=== PATIENT | female | born 1985 | race Caucasian/White ===

== ENCOUNTER 2022-04-17 13:29 | Inpatient (IN) | payer OTHER, SELFPAY ==
[2022-04-17] VITALS (20 sets, daily range): BP systolic 103–143; BP diastolic 78–101; PULSE 93–124; RESP 16–28; TEMP 36.6–37.1; O2SAT 88–100
--- NOTE | ~2022-04-17 | CT_ITS ---
EXAMINATION: CT BRAIN W/O DATE: 04/17/2022 14:02 INDICATION: Strokelike symptoms. TECHNIQUE: Computed tomography (CT) of the head was performed without intravenous contrast. The dose- length product was 605.33 mGy-cm. Automated exposure control and iterative reconstruction technique w ere employed. COMPARISON: No prior studies for comparison. FINDINGS: Normal brain parenchymal volume for age. Normal sheldon-white differentiation. No acute intrac ranial hemorrhage, infarction, mass or mass effect. No ventriculomegaly or midline shift. Midline sagittal images demonstrate a normal corpus callosum, c raniovertebral junction and sella turcica. Basilar cisterns are patent. Paranasal sinuses and mastoids are pneumatized. No depressed skull fractures. IMPRESSION: 1. No acute intracranial abnormality. Reviewed, dictated and finalized at location A.
--- NOTE | ~2022-04-17 | XR_ITS ---
EXAMINATION: XR chest 1V 04/17/2022 13:55 INDICATION: Symptoms PROCEDURE: AP view of the chest COMPARISON: No prior studies for comparison. FINDINGS: The lungs are clear. The cardiomediastinal silhouette is within normal limits. There are no pleural effusions. There is no pneumothorax suspected. IMPRESSION: 1: NO ACUTE CARDIOPULMONARY DISEASE. Reviewed, dictated and finalized at location A.
--- NOTE | ~2022-04-17 | XR_ITS ---
EXAMINATION: XR chest 1V portable DATE: 04/20/2022 05:54 INDICATION: Intubation. TECHNIQUE: A single frontal view of the chest was obtained. COMPARISON: Chest single view 04/19/2022, chest CT 04/18/2022 FINDINGS: There is no pneumonia, pleural effusion, or pneumothorax. The heart size is normal. The end otracheal tube tip is 5.0 cm above the willian. The nasogastric tube tip is in the stomach with proxim al side port at the gastroesophageal junction. A left upper extremity peripherally inserted central v enous catheter (PICC) is seen with tip at the superior cavoatrial junction. IMPRESSION: 1. No acute cardiopulmonary disease. 2. Nasogastric tube tip in the stomach with proximal side port at the gastroesophageal junction. Adva ncement 3 cm is recommended. Reviewed, dictated and finalized at location A. IMPRESSION: 1. No acute cardiopulmonary disease. 2. Nasogastric tube tip in the stomach with proximal side port at the gastroeso phageal junction. Advancement 3 cm is recommended.
--- NOTE | ~2022-04-17 | XR_ITS ---
XR chest 1V portable DATE: 04/24/2022 06:29 INDICATION: Respiratory failure TECHNIQUE: Portable upright AP chest on 04/2022 at 0541 hours COMPARISON: 04/22/2022 portable AP chest at 0536 hours FINDINGS: ET tube tip approximately 5.6 cm above willian; ideal range is 2 5 cm. NG tube in stomach. Left upper extremity PIC catheter tip is situated near the superior cavoatrial junction. Normal heart size. No pulmonary infiltrate or consolidation, pleural effusion or pulmonary vascular c ongestion or pneumothorax. Diffuse osteopenia. IMPRESSION: No active cardiac pulmonary disease ET tube 5.6 cm above willian NG tube in stomach Left upper extremity PIC catheter at superior cavoatrial junction Reviewed, dictated and finalized at location A.
--- NOTE | ~2022-04-17 | CT_ITS ---
EXAMINATION: CT brain wo con DATE: 04/21/2022 12:55 INDICATION: Cerebrovascular accident. TECHNIQUE: Computed tomography (CT) of the head was performed without intravenous contrast. The mA wa s adjusted according to patient size. Iterative reconstruction technique was employed. The dose-lengt h product was 605.33 mGy-cm. COMPARISON: Head CT 04/18/2022, 04/17/2022, brain MRI 04/18/2022. FINDINGS: There are acute infarcts involving the medial frontal lobes, frontoparietal regions, medial left parietal lobe, and medial aspects of the thalami. There is no intracranial hemorrhage or abnorm al mass lesion. The ventricles are normal in size. The orbits are normal. There is mild mucosal thick ening in the paranasal sinuses. The mastoid air cells are normal. IMPRESSION: 1. Acute infarcts involving the frontal and parietal lobes and thalami. The distribution of findings and temporal progression suggest anoxic brain injury. Reviewed, dictated and finalized at location A. IMPRESSION: 1. Acute infarcts involving the frontal and parietal lobes and thalami. The dis tribution of findings and temporal progression suggest anoxic brain injury.
--- NOTE | ~2022-04-17 | CT_ITS ---
EXAMINATION: CT chest abdomen pelvis wo con DATE: 04/18/2022 23:52 INDICATION: Stroke. Vomiting. TECHNIQUE: Computed tomography (CT) of the chest, abdomen, and pelvis was performed without intraveno us contrast. Automated exposure control and iterative reconstruction technique were employed. The dos e-length product was 381.01 mGy-cm. COMPARISON: Chest CT 04/18/2022, CT abdomen and pelvis 04/17/2022 FINDINGS: CHEST CT: There is mild atelectasis bilaterally with a posterior predominance, left worse than right. There is material in the trachea and left mainstem bronchus. No pleural effusion. The heart size is normal. No pericardial effusion. The nasogastric tube tip is in the distal stomach. The endotracheal tube tip i s in expected position above the willian. There is a 1.8 cm peripherally calcified nodule in left thyr oid lobe. There is mild thoracic spondylosis. ABDOMEN/PELVIS CT: The liver demonstrates focal steatosis adjacent to the falciform ligament. The gallbladder is normal in size and contains contrast in a gallstone. The spleen, pancreas, adrenal glands and kidneys are no rmal. There is a Markham catheter in expected position. There are no dilated loops of bowel. The append ix is normal. There are no pathologically enlarged lymph nodes. There is no free intraperitoneal flui d. IMPRESSION: 1. Cholelithiasis. No evidence of acute cholecystitis. 2. Left thyroid nodule. Consider thyroid ultrasound for risk stratification. 3. Material in the trachea and left mainstem bronchus that may be mucous or aspiration. Reviewed, dictated and finalized at location A. IMPRESSION: 1. Cholelithiasis. No evidence of acute cholecystitis. 2. Left thyroid nodule. Consider thyroid ultrasound for risk stratification. 3. Material in the trachea and left mainstem bronchus that may be mucous or asp iration.
--- NOTE | ~2022-04-17 | CT_ITS ---
EXAMINATION: CT brain wo con DATE: 04/18/2022 23:52 INDICATION: Stroke. TECHNIQUE: Computed tomography (CT) of the head was performed without intravenous contrast. The mA wa s adjusted according to patient size. Iterative reconstruction technique was employed. The dose-lengt h product was 605.33 mGy-cm. COMPARISON: Head CT 04/18/2022, brain MRI 04/18/2022 FINDINGS: There is hypoattenuation in the bilateral frontoparietal regions, left worse than right, co nsistent with acute infarcts. There is no intracranial hemorrhage or abnormal mass lesion. The ventri cles are normal in size. There is mild mucosal thickening in the paranasal sinuses. The mastoid air c ells are normal. IMPRESSION: 1. Acute infarcts in the frontoparietal regions, left worse than right. Reviewed, dictated and finalized at location A.
--- NOTE | ~2022-04-17 | XR_ITS ---
XR chest PICC line DATE: 04/19/2022 12:24 INDICATION: PICC line placement TECHNIQUE: Portable AP chest on 04/19/2022 at 1250 hours COMPARISON: 04/19/2022 portable AP chest at 0844 hours FINDINGS: There is interval placement of a left upper extremity PIC catheter, the tip situated near t he superior cavoatrial junction. ET tube in satisfactory position 3.2 cm above willian. NG tube in stomach. Normal heart size. No hilar or mediastinal enlargement. No pulmonary infiltrate or consolidation, ple ural effusion or pulmonary vascular congestion or pneumothorax. IMPRESSION: Left upper extremity PIC catheter tip at superior cavoatrial junction Reviewed, dictated and finalized at Location A. Reviewed, dictated and finalized at location A. IMPRESSION: Left upper extremity PIC catheter tip at superior cavoatrial juncti on
--- NOTE | ~2022-04-17 | XR_ITS ---
EXAMINATION: XR chest 1V portable DATE: 04/22/2022 06:17 INDICATION: Intubation. TECHNIQUE: A single frontal view of the chest was obtained. COMPARISON: Chest single view 04/21/2022 FINDINGS: There is no pneumonia, pleural effusion, or pneumothorax. The heart size is normal. The end otracheal tube tip is 6.5 cm above the willian. A left upper extremity peripherally inserted central v enous catheter (PICC) is seen with tip at the superior cavoatrial junction. The nasogastric tube tip is beyond the inferior margin of the radiograph, but at least to the stomach. IMPRESSION: 1. No acute cardiopulmonary disease. Reviewed, dictated and finalized at location A.
--- NOTE | ~2022-04-17 | CT_ITS ---
EXAMINATION: CT soft tissue neck chest wo DATE: 04/18/2022 12:45 INDICATION: Speech disturbance. Right hemiparesis. Confusion. Vomiting. TECHNIQUE: Computed tomography (CT) of the neck was performed without intravenous contrast. Automated exposure control and iterative reconstruction technique were employed. The dose-length product was 5 37.44 mGy-cm. COMPARISON: CT abdomen and pelvis 04/17/2022 FINDINGS: CT NECK: Motion artifact is noted. There are no pathologically enlarged lymph nodes. The paranasal si nuses are clear. The mastoid air cells are normal. There is a foreign body in the mouth that may be a dental appliance. There is mild cervical spondylosis. There is anterior fusion at C5-C6. CT CHEST: There is mild dependent atelectasis bilaterally. No pleural effusion. There are coarse calc ifications in left thyroid lobe. The heart size is normal. No pericardial effusion. There is mild tho racic spondylosis. IMPRESSION: 1. No etiology for the patient's symptoms. Reviewed, dictated and finalized at location E.
--- NOTE | ~2022-04-17 | CT_ITS ---
EXAMINATION: CTA brain carotid DATE: 04/18/2022 15:55 INDICATION: cva TECHNIQUE: Computed tomographic angiography (CTA) of the head and neck was performed withwith 100 mL Omnipaque-350 intravenous contrast. Automated exposure control and iterative reconstruction technique were employed. The dose-length product was 1036.24 mGy-cm. Maximum intensity projection and volume r endered 3D-reconstructions were created by the technologist on a separate workstation. COMPARISON: MRI brain, same date. CT brain 04/17/2022. FINDINGS: Examination is limited throughout by significant motion artifact, worst in the neck images. CTA HEAD: No large vessel occlusion, aneurysm, high flow vascular malformation, nidus or extravasation. CTA NECK: Aortic arch and proximal great vessels: No significant plaque. Right common carotid, carotid bifurcation, and internal carotid artery: No significant plaque.There i s 0% stenosis of the proximal right internal carotid artery relative to normal distal artery lumen di ameter (NASCET criteria). Left common carotid, carotid bifurcation, and internal carotid artery: No significant plaque.There is 0% stenosis of the proximal left internal carotid artery relative to normal distal artery lumen diam eter (NASCET criteria). Vertebral arteries: No significant plaque or stenosis. Other findings: Question prior right thyroid lobectomy. IMPRESSION: Examination is severely limited by motion artifact. Within that constraint, no large vessel occlusion is detected. No definite severe carotid or vertebral artery stenosis. Reviewed, dictated and finalized at location K. IMPRESSION: Examination is severely limited by motion artifact. Within that constraint, no large vessel occlusion is detected. No definite severe carotid or vertebral art darren stenosis.
--- NOTE | ~2022-04-17 | XR_ITS ---
XR chest 1V portable DATE: 04/25/2022 06:50 INDICATION: Respiratory failure TECHNIQUE: Portable AP chest on 04/25/2022 at 0527 hours COMPARISON: 04/24/2022 portable AP chest at 0541 hours FINDINGS: ET tube 6 cm above willian; ideal range is 2 to 5 cm. NG tube in satisfactory position in stomach. Left upper extremity PIC catheter tip overlies the right atrium. Moderate bilateral hyperinflation. No pulmonary consolidation, pleural effusion, pulmonary vascular c ongestion or pneumothorax. IMPRESSION: Mild hyperinflation; no active cardiopulmonary disease ET tube 6 cm above willian; ideal range is 2 5 cm Reviewed, dictated and finalized at location A. MED SURG
--- NOTE | ~2022-04-17 | XR_ITS ---
EXAMINATION: XR chest 1V portable DATE: 04/19/2022 08:59 INDICATION: Intubation. TECHNIQUE: A single frontal view of the chest was obtained. COMPARISON: Chest single view 04/18/2022 FINDINGS: There is no pneumonia, pleural effusion, or pneumothorax. The heart size is normal. The end otracheal tube tip is 3.9 cm above the willian. The nasogastric tube tip is beyond the inferior margin of the radiograph, but at least to the stomach. IMPRESSION: 1. No acute cardiopulmonary disease. Reviewed, dictated and finalized at location A.
--- NOTE | ~2022-04-17 | XR_ITS ---
EXAMINATION: XR chest 1V portable DATE: 04/21/2022 05:45 INDICATION: Intubation. TECHNIQUE: A single frontal view of the chest was obtained. COMPARISON: Chest single view 04/20/2022, chest CT 04/18/2022 FINDINGS: There is no pneumonia, pleural effusion, or pneumothorax. The heart size is normal. The end otracheal tube tip is 5.8 cm above the willian. A left upper extremity peripherally inserted central v enous catheter (PICC) is seen with tip at the superior cavoatrial junction. The nasogastric tube tip is beyond the inferior margin of the radiograph, but at least to the stomach. IMPRESSION: 1. No acute cardiopulmonary disease. Reviewed, dictated and finalized at location A.
--- NOTE | ~2022-04-17 | CT_ITS ---
EXAMINATION: CT abdomen pelvis w con DATE: 04/17/2022 16:07 INDICATION: confusion, vomiting, lactic acidosis TECHNIQUE: Computed tomography (CT) of the abdomen and pelvis was performed with 100 mL Omnipaque-350 intravenous contrast. Automated exposure control and iterative reconstruction technique were employe d. The dose-length product was 318.59 mGy-cm. COMPARISON: None. FINDINGS: Lower thorax: Unremarkable Liver: Fatty infiltration. Biliary/Gallbladder: Gallbladder is collapsed. No bile duct dilation. Pancreas: No mass or duct dilation. Spleen: Normal. Adrenals:No mass. Kidneys: Mild patchy enhancement most evident in the bilateral upper poles and right midpole. Mild bi lateral ureterectasis with urothelial enhancement. No suspicious mass. No obstructing stone. GI tract: Mild distal esophageal and gastric wall edema as can be seen with esophagitis/gastritis. No small or large bowel dilation. Normal appendix. Diverticulosis without diverticulitis. Mesentery/Peritoneum: No ascites, mass, or free air. Retroperitoneum: No mass. Calcified and noncalcified abdominal aortic plaque. Pelvis: Distended urinary bladder without wall thickening, remaining pelvic organs are within normal limits. Soft Tissues: Soft tissues and body wall unremarkable. Bones: No acute osseous finding. IMPRESSION: Renal findings may reflect bilateral pyelonephritis in the appropriate clinical context. Reviewed, dictated and finalized at location K.
--- NOTE | ~2022-04-17 | XR_ITS ---
EXAMINATION: XR chest ET placement DATE: 04/18/2022 22:21 INDICATION: Intubation. TECHNIQUE: A single frontal view of the chest was obtained. COMPARISON: Chest single view 04/17/2022 FINDINGS: There is volume loss of left hemithorax. There are airspace opacities in all left lung zone s. No pleural effusion or pneumothorax. The heart size is normal. The endotracheal tube tip is 2.1 cm above the willian. The nasogastric tube tip is beyond the inferior margin of the radiograph, but at l east to the stomach. IMPRESSION: 1. New volume loss of left hemithorax with new airspace opacities in left lung, likely atelectasis. Reviewed, dictated and finalized at location A.
--- NOTE | ~2022-04-17 | MR_ITS ---
EXAMINATION: MR brain IAC wo/w con DATE: 04/18/2022 12:38 INDICATION: Cerebrovascular accident. TECHNIQUE: Magnetic resonance imaging (MRI) of the brain, brainstem, and internal auditory canals was performed without and with 12 mL MultiHance intravenous contrast. COMPARISON: Head CT 04/17/2022 FINDINGS: There are acute cortical infarcts in the bilateral frontoparietal regions, left worse than right. There is increased cortical T2-weighted signal intensity in the medial posterior frontal lobes, left worse than right. There is n o intracranial hemorrhage or abnormal mass lesion. The ventricles are normal in size. The orbits are normal. The mastoid air cells are normal. The internal auditory canals and inner and middle ears are normal. The mastoid air cells are normal. IMPRESSION: 1. Acute cortical infarcts in the frontoparietal regions, left worse than right. 2. Cortical infarcts involving the medial posterior frontal lobes, left worse than right, likely floor attendant viviana. Reviewed, dictated and finalized at location E. IMPRESSION: 1. Acute cortical infarcts in the frontoparietal regions, left worse than right . 2. Cortical infarcts involving the medial posterior frontal lobes, left worse t emmanuel right, likely chronic.
--- NOTE | 2022-04-17 13:32 | ECG_ITS ---
Measurements Intervals [place] Rate: 119 P: 183 MT: 142 QRS: 85 QRSD: 150 T: 268 QT: 381 QTc: 538 Interpretive Statements SINUS TACHYCARDIA INTRAVENTRICULAR CONDUCTION DELAY [130+ ms QRS DURATION] ST DEPRESSIONS IN INFEROLATERAL LEADS NO PREVIOUS ECG AVAILABLE FOR COMPARISON Electronically Signed On 04-18-2022 12:12:24 CDT by Cale Dupont M.D.
--- NOTE | 2022-04-17 14:09 | ED.NEUROSD ---
HPI - Neuro Symptoms/Deficit General Chief Complaint: Suspected CVA Stated Complaint: sick x 2 days Time Seen by Provider: 04/17/22 13:35 History of Present Illness HPI Narrative: 37-year-old female with no medical problems presents to the emergency room via EMS for evaluation of a suspected stroke. EMS was not able to provide any historical information. Patient presents complaining of generalized weakness, slurred speech and a 2-week history of multiple episodes of vomiting. Patient relates that she felt she was getting better 3 to 4 days ago, and then continued vomiting. States that she has been unable to get out of bed the last 2 days. Reports waking up this morning and experiencing slurred and garbled speech, and generalized weakness. Patient is able to follow directions and respond to questions appropriately. Patient denies headache, chest pain or shortness of breath, or abdominal pain. States has had 1-2 episodes of nonmelanotic diarrhea. Patient also denies any head injury or trauma. Denies use of recreational drugs or excessive EtOH use. Related Data Home Medications Medication Instructions Recorded Confirmed ergocalciferol (vitamin D2) 1,250 1,250 mcg PO 1XD 04/17/22 04/17/22 mcg (50,000 unit) capsule folic acid 1 mg tablet 1 mg PO 1XD 04/17/22 04/17/22 terbinafine HCl 250 mg tablet 250 mg PO 1XD 04/17/22 04/17/22 Allergies Allergy/AdvReac Type Severity Reaction Status Date / Time No Known Allergies Allergy Verified 04/17/22 14:36 Review of Systems Review of Systems: CONSTITUTIONAL: Denies fever, chills, or sweats. EYES: Denies visual changes, redness, or discharge. ENT: Denies rhinorrhea, congestion, sore throat, or otalgia. CARDIOVASCULAR: Denies chest pain, palpitations, or edema. RESPIRATORY: Denies cough or dyspnea. GASTROINTESTINAL: Denies abdominal pain, nausea, vomiting, or diarrhea. GENITOURINARY: Denies dysuria or hematuria. SKIN: Denies rash or itching. MUSCULOSKELETAL: Denies back pain, joint pain, or myalgia. NEUROLOGIC: Reports generalized weakness PSYCHIATRIC: Denies anxiety or depression. [facility] Past Medical History Medical History No significant medical problems Surgical History Surgical History History of repair of pyloric stenosis Family History Family History Other Diabetes mellitus Social History Social History Social History: The patient lives in [place]. She is recently from her as detailed in HPI. They have 2 young daughters. She is a social smoker. No reports of alcohol abuse. Occasional marijuana use. Prior history of illicit substance abuse though not well documented. Her mother Lakshmi Bruno is her next of kin, . Exam Narrative: GENERAL: Ill-appearing HEAD: Normocephalic, atraumatic. EYES: Conjunctivae normal, PERRLA and EOMI. Lid lag. ENT: External nose normal, Nares clear, no rhinorrhea or epistaxis. Mucous membranes dry. Oropharynx without tonsillar hypertrophy. External ears normal, bilateral TMs normal bilaterally NECK: Supple. No meningeal signs. No adenopathy or masses. No carotid bruits or JVD CHEST: Clear to auscultation. No respiratory distress. No wheezes rales or rhonchi. HEART: Tachycardia and regular rhythm. No murmur heard. Normal peripheral pulses. ABDOMEN: Soft, nontender, nondistended, normal active bowel sounds. BACK: No CVA tenderness; No cervical/thoracic/lumbar tenderness, step-offs, bony abnormality; FROM EXTREMITIES: No edema. No clubbing or cyanosis SKIN: Warm, dry, no rash. No noted wounds NEURO: Alert and oriented x3. SLurred dysarthric speech. CN2-12 itact. Unable to assess cerebellar Exam due to generalized weakness. Strength diminished in bilateral upper extremities and bilateral lo
[2022-04-17 14:14] LABS: Glucose Point of Care 258 mg/dl (65-105)
[2022-04-17] MEDS: SODIUM CHLORIDE 0.9% IV 1,000 ML 150 ML IV CONT (14:20)
[2022-04-17 14:26] LABS: Basophils Percent Auto 0.1 % (0.2-1.2); Hematocrit 50.9 % (37.0-47.0); Hemoglobin 17.4 g/dL (12.0-15.0); Immature Granulocyte Absolute 0.06 K/mm3 (0.00-0.031); Immature Granulocyte Percent A 0.4 % (0-0.5); Lymphocytes Absolute Auto 1.38 K/mm3 (0.9-3.2); Lymphocytes Percent Auto 9.1 % (18.3-44.2); Mean Corpuscular HGB Conc 34.2 g/dl (32-36); Mean Corpuscular Hemoglobin 29.7 pg (26-34); Mean Corpuscular Volume 86.9 fl (80-100); Mean Platelet Volume 10.4 fl (7.4-10.4); Monocytes Percent Auto 6.6 % (2.6-8.5); Neutrophils Absolute Auto 12.7 K/mm3 (1.3-6.7); Neutrophils Percent Auto 83.8 % (45.5-73.1); Platelet Count Result 397 k/mm3 (150-375); Red Blood Count 5.86 M/mm3 (4.2-5.4); Red Cell Distribution Width 12.2 % (11.5-14.5); White Blood Count 15.2 K/mm3 (4.5-10.0)
--- NOTE | 2022-04-17 14:26 | PC.NURSE ---
200 anahi yellow, clear
[2022-04-17 14:37] LABS: Add Urine Microscopic? YES; Appearance Urine Slightly Cloudy (Clear); Bilirubin Urine 2+ (Negative); Blood Urine Trace-lysed (Negative); Color Urine Yellow (Yellow); Glucose Urine UA Negative (Negative); Ketones Urine 3+ mg/dL (Negative); Leukocyte Esterase Ur Negative LEU/UL (Negative); Nitrate Urine Negative (Negative); Protein Urine 3+ mg/dL (Negative); Specific Grav Ur >= 1.030 (1.001-1.035)
[2022-04-17 14:39] LABS: INR 1.1; Partial Thromboplastin Time 26.7 SECONDS (22.3-36.8); Prothrombin Time 13.9 Seconds (11.1-14.7)
[2022-04-17 14:40] LABS: Alanine Aminotransferase 27 U/L (6-35); Albumin Level 4.9 g/dL (3.5-5.1); Alkaline Phosphatase 88 U/L (38-126); Anion Gap 23 mmol/L (8-16); Aspartate Amino Transferase 31 U/L (14-36); Bilirubin,Total 1.1 mg/dL (0.2-1.3); Blood Urea Nitrogen 21 mg/dL (7-17); CRP < 0.5 mg/dL (<1.0); Calcium 9.6 mg/dL (8.4-10.2); Carbon Dioxide 20 mmol/L (22-30); Chloride 93 mmol/L (98-107); Creatine Kinase 42 U/L (30-135); Estimated CRCL calculation 100 ml/min; Estimated Glomerular Filt Rate > 60; Glucose 255 mg/dL (65-110); Magnesium 2.2 mg/dL (1.6-2.3); Potassium 3.1 mmol/L (3.4-5.0); Sodium 136 mmol/L (137-145)
[2022-04-17 14:41] LABS: Lactic Acid Reflex 5.3 mmol/L (0.7-2.0)
[2022-04-17 14:42] LABS: Mucus Urine Heavy /lpf
[2022-04-17 14:48] LABS: D Dimer 0.34 ug/mL (<0.48)
[2022-04-17 14:49] LABS: Troponin I 0.022 ng/mL (0.000-0.034)
[2022-04-17] MEDS: SODIUM CHLORIDE 0.9% IV 1,000 ML 999 ML IV CONT (14:50)
[2022-04-17 14:51] LABS: Erythrocyte Sedimentation Rate 1 mm/hr (0-20)
[2022-04-17 15:01] LABS: Amphetamine Screen Urine Positive (Negative); Barbiturate Screen Urine Negative (Negative); Benzodiazepines Screen Urine Negative (Negative); Cannabinoid Screen Urine Positive (Negative); Cocaine Screen Urine Negative (Negative); Methadone Screen Urine Negative (Negative); Opiate Screen Urine Negative (Negative); Phencyclidine Screen Urine Negative (Negative)
[2022-04-17] MEDS: POTASSIUM CHLORIDE INJ 40 MEQ in SODIUM CHLORIDE 0.9% IV 500 ML 130 MEQ IVPB (15:06)
[2022-04-17 15:08] LABS: Thyroid Stimulating Hormone < 0.015 uIU/mL (0.465-4.680)
[2022-04-17 15:13] LABS: Influenza A QL RT-PCR Negative (Negative); Influenza B QL RT-PCR Negative (Negative); SARS-CoV-2 RNA PCR Negative
[2022-04-17 15:35] LABS: Beta-Hydroxybutyrate/Acetoacetate 2.09 mmol/L (0.02-0.27)
[2022-04-17 15:55] LABS: Hemoglobin A1C 6.6 % (<5.7)
[2022-04-17 17:24] LABS: Reflex Lactic Acid Yes or No Add Lactic
[2022-04-17 17:26] LABS: Lactic Acid Reflex 4.8 mmol/L (0.7-2.0)
--- NOTE | 2022-04-17 17:30 | PM.IMHP ---
H&P: HPI History of Present Illness Date/Time: 04/17/22 17:30 Chief Complaint: Weakness and slurred speech. Narrative: This is a 37-year-old previously healthy female who presented to the emergency department via EMS from home for evaluation of weakness and slurred speech. She has some difficulties providing history given her slurred speech and as such some of the following is supplemented via a review of her electronic medical records as well as discussions with her mother Lakshmi who was at bedside, with the patient's permission. The patient does not have any significant medical history. She is a social smoker and has a history illicit substance use several years ago, per the mother's report. Two weeks ago the patient asked her to move out of the house due to ongoing issues with his alcoholism and since that time the patient's mother has been helping her care for her 2 young daughters. Over the past week the patient has been complaining of fullness and pressure in her ears and several days ago she took 1 dose of Sudafed to help with her symptoms which ?completely knocked her out.? Mother has been taking care of the girls since that time. She last talked to the patient a couple of days ago and when she went to check on her today she found the patient in bed with slurred speech. It is my understanding that she had evidence of vomiting as well. On EMS arrival they noted that her speech was slurred and that her left side seemed to be weak. Vital signs were stable on arrival to the emergency department. Pertinent labs include an elevated white blood cell count, elevated hemoglobin and hematocrit, several electrolyte abnormalities, elevated lactic acid level, nearly undetectable TSH with slightly elevated T4, and normal troponins x2. Acetaminophen and salicylate levels were undetectable. Urine drug screen was positive for amphetamines, which the patient denies, and cannabinoids of which she admits to using recreationally. Brain CT and chest x-ray were unremarkable. CT of the abdomen and pelvis showed findings which may reflect bilateral pyelonephritis. UA was however negative for nitrates and leukocyte esterase with 4 to 6 wbc's. EKG was grossly abnormal with diffuse ST depression in inferolateral and anterior leads with prolonged QT. At the time my evaluation she is awake and alert. Her speech is slurred and is difficult to understand what she is trying to say. At times it seems as though she has difficulties getting the words out that she wants to say. No gross focal deficits were noted on exam, specifically no facial droop or focal weakness. Aside from 1 dose of Sudafed a couple of days ago she adamantly denies taking any medication in the last day or 2 whatsoever. She denies amphetamine use. She has not had a headache but she does complain of some fullness in her ears and decreased hearing in both ears. She denies visual changes. No sore throat or difficulty swallowing however she did cough shortly after taking a drink of water through the straw at bedside. She has no sensations of palpitations or racing heart. She also denies chest pain and pleuritic pain. She admits that she has a history of hyperthyroidism but has not been taking medication for quite some time for unclear reasons. She has lost some weight. No history of diabetes though her A1c today is 6.6%. She has evidence of thrush on exam but seems asymptomatic with that. She has had nausea and vomiting but that has since improved since arrival to the emergency department. No diarrhea. She has not noticed any blood in her stool or in the vomit. No dysuria, urinary hesitancy, or frequency. She feels as though she is urinating fine although her bladder feels distended on exam. No low back or abdominal pain. Review of Systems Review of Systems: Twelve systems were reviewed. No fever, chills, or sweats. No cold or flu symptoms. No sick contacts. No neck pain. No focal weakness or paresthesias. No recent his
[2022-04-17 17:35] LABS: Anion Gap 18 mmol/L (8-16); Blood Urea Nitrogen 17 mg/dL (7-17); Calcium 8.3 mg/dL (8.4-10.2); Carbon Dioxide 18 mmol/L (22-30); Chloride 102 mmol/L (98-107); Estimated CRCL calculation 118 ml/min; Estimated Glomerular Filt Rate > 60; Glucose 190 mg/dL (65-110); Potassium 3.5 mmol/L (3.4-5.0); Sodium 138 mmol/L (137-145)
--- NOTE | 2022-04-17 17:45 | ADMGEN ---
This patient, Silvana Huff, was admitted to Medical Room 341-01. Patient/family oriented to hospital policies and general routines including ID bracelet, bed and alarms, visiting hours, pain management, procedures, bathroom and other care routines, personal items, smoking policy, room service/diet, and visiting hours. Information on how to activate the Rapid Response Team has been discussed. Patient/Family are encouraged to report perceived risks to care and to ask questions if they do not understand what they are told or what they should do.
[2022-04-17 17:57] LABS: Total Triiodothyronine (T3) 0.86 NG/ML (0.97-1.69)
[2022-04-17 18:19] LABS: Acetaminophen < 10 ug/mL (10-30); Salicylate < 1.0 mg/dL (2-20)
[2022-04-17 18:20] LABS: Alveolar/Arterial O2 Gradient 20.5 mmHg; Base Excess ABG -1.8 mEq/l (+/-2.0); Carboxyhemoglobin 0.3 % THb (0-2.0); Fractional Inspired Oxygen 21 %; HCO3 ABG 19.8 mEq/l (22.0-26.0); Methemoglobin ABG 0.4 %THb (0-1.5); Oxygen Content ABG 22.9 %vol (16.0-22.0); Oxygen Saturation ABG 97.9 % (95.0-100.0); Oxyhemoglobin 96.6 % THb (90.0-100.0); PO2 ABG 96.9 mmHg (80.0-100.0); PO2 FiO2 Ratio Arterial Blood 4.61 %; Reduced Hemoglobin 2.7 %THb (0-5.0); Total Hemoglobin 16.8 g/dL (12.0-18.0); pH ABG 7.483 (7.350-7.450)
[2022-04-17 18:20] LABS: Free T4 Free Thyroxine 2.29 ng/mL (0.78-2.19)
[2022-04-17 18:21] LABS: Lactic Acid Reflex 5.1 mmol/L (0.7-2.0)
[2022-04-17 18:22] LABS: Site Drawn LEFT BRACHIAL
--- NOTE | 2022-04-17 19:07 | ECG_ITS ---
Measurements Intervals [place] Rate: 101 P: 1 NE: 94 QRS: -31 QRSD: 85 T: 119 QT: 319 QTc: 413 Interpretive Statements SINUS TACHYCARDIA WITH SHORT NE INTERVAL MARKED LEFT AXIS DEVIATION [QRS AXIS < -30] LEFT VENTRICULAR HYPERTROPHY AND ST-T CHANGE [VOLTAGE CRITERIA PLUS ST/T ABNORMALITY] NO PREVIOUS ECG AVAILABLE FOR COMPARISON Electronically Signed On 04-18-2022 12:14:53 CDT by Cale Dupont M.D.
[2022-04-17 20:04] LABS: Troponin I 0.028 ng/mL (0.000-0.034)
[2022-04-17] MEDS: SODIUM CHLORIDE 0.9% IV 1,000 ML 125 ML IV CONT ×2 (20:22→23:39)
[2022-04-17 20:31] LABS: Glucose Point of Care 201 mg/dl (65-105)
[2022-04-17 23:14] LABS: Troponin I 0.032 ng/mL (0.000-0.034)
--- NOTE | 2022-04-17 23:26 | ECG_ITS ---
Measurements Intervals [place] Rate: 98 P: 63 [place]: 100 QRS: 90 QRSD: 91 T: -68 QT: 354 QTc: 454 Interpretive Statements SINUS RHYTHM WITH SHORT [place] INTERVAL ST DEVIATION AND MODERATE T-WAVE ABNORMALITY, CONSIDER ANTEROLATERAL ISCHEMIA [-0.1+ mV T WAVE IN V3-V6] ST DEVIATION AND MODERATE T-WAVE ABNORMALITY, CONSIDER INFERIOR ISCHEMIA [-0.1+ mV T WAVE IN II/aVF] COMPARED TO ECG 04/17/2022 19:15:49 SINUS RHYTHM NOW PRESENT Electronically Signed On 04-18-2022 12:16:12 CDT by Cale Dupont M.D.
[2022-04-17 23:48] LABS: Anion Gap 13 mmol/L (8-16); Blood Urea Nitrogen 14 mg/dL (7-17); Calcium 8.3 mg/dL (8.4-10.2); Carbon Dioxide 19 mmol/L (22-30); Chloride 106 mmol/L (98-107); Creatine Kinase 40 U/L (30-135); Estimated CRCL calculation 118 ml/min; Estimated Glomerular Filt Rate > 60; Glucose 173 mg/dL (65-110); Potassium 3.7 mmol/L (3.4-5.0); Sodium 138 mmol/L (137-145)
[2022-04-17 23:59] LABS: Troponin I 0.032 ng/mL (0.000-0.034)
[2022-04-18] VITALS (22 sets, daily range): BP systolic 103–183; BP diastolic 80–125; PULSE 85–153; RESP 14–31; TEMP 35.6–37.2; O2SAT 94–100
[2022-04-18] MEDS: FLUCONAZOLE 400 MG/NACL 200 ML 400 MG/200 ML BAG 100 MG IVPB (02:35)
[2022-04-18] MEDS: ENOXAPARIN 60 MG/0.6 ML SYRINGE SUB-Q ×2 (02:37→17:44)
[2022-04-18 05:47] LABS: Basophils Percent Auto 0.2 % (0.2-1.2); Eosinophils Percent Auto 0.1 % (0-4.4); Hematocrit 47.8 % (37.0-47.0); Hemoglobin 16.2 g/dL (12.0-15.0); Immature Granulocyte Absolute 0.07 K/mm3 (0.00-0.031); Immature Granulocyte Percent A 0.4 % (0-0.5); Lymphocytes Absolute Auto 2.14 K/mm3 (0.9-3.2); Lymphocytes Percent Auto 13.1 % (18.3-44.2); Mean Corpuscular HGB Conc 33.9 g/dl (32-36); Mean Corpuscular Hemoglobin 30.3 pg (26-34); Mean Corpuscular Volume 89.3 fl (80-100); Mean Platelet Volume 10.6 fl (7.4-10.4); Monocytes Absolute Auto 1.2 K/mm3 (0.1-0.6); Monocytes Percent Auto 7.5 % (2.6-8.5); Neutrophils Absolute Auto 12.9 K/mm3 (1.3-6.7); Neutrophils Percent Auto 78.7 % (45.5-73.1); Platelet Count Result 364 k/mm3 (150-375); Red Blood Count 5.35 M/mm3 (4.2-5.4); Red Cell Distribution Width 12.6 % (11.5-14.5); White Blood Count 16.4 K/mm3 (4.5-10.0)
[2022-04-18 06:02] LABS: Lactic Acid Reflex 3.4 mmol/L (0.7-2.0)
[2022-04-18 06:04] LABS: Complement C3 118 mg/dL (88-165)
[2022-04-18 06:16] LABS: Alanine Aminotransferase 23 U/L (6-35); Albumin Level 4.3 g/dL (3.5-5.1); Alkaline Phosphatase 72 U/L (38-126); Anion Gap 15 mmol/L (8-16); Aspartate Amino Transferase 30 U/L (14-36); Bilirubin,Total 0.9 mg/dL (0.2-1.3); Blood Urea Nitrogen 11 mg/dL (7-17); Carbon Dioxide 19 mmol/L (22-30); Chloride 105 mmol/L (98-107); Estimated CRCL calculation 145 ml/min; Estimated Glomerular Filt Rate > 60; Glucose 160 mg/dL (65-110); Magnesium 1.9 mg/dL (1.6-2.3); Potassium 3.3 mmol/L (3.4-5.0); Sodium 139 mmol/L (137-145)
[2022-04-18 06:36] LABS: HIV 1/2 Ab P24 Ag Result Negative (Negative)
[2022-04-18 07:22] LABS: Glucose Point of Care 143 mg/dl (65-105)
[2022-04-18 08:41] LABS: Reflex Lactic Acid Yes or No Add Lactic
[2022-04-18] MEDS: cefTRIAXone 2 GM in SODIUM CHLORIDE 0.9% IV 100 ML 200 ML IVPB (09:02)
[2022-04-18 09:19] LABS: Lactic Acid 2.3 mmol/L (0.7-2.0)
--- NOTE | 2022-04-18 09:55 | WPDNEURCNPN ---
Assessment and Plan Assessment and plan (1) Slurred speech: Code(s): R47.81 - Slurred speech Status: Acute (2) Hyperthyroidism: Code(s): E05.90 - Thyrotoxicosis, unspecified without thyrotoxic crisis or storm Status: Acute (3) Dehydration: Code(s): E86.0 - Dehydration Status: Acute Plan Silvana Huff is a 37 year old female with a history of hyperthyroidism and newly diagnosed diabetes who presented with slurred speech and generalized weakness in the setting of illness. Differential is broad including ingestion vs infectious etiology vs less likely stroke or demyelinating disease. - MRI brain with and without contrast - If imaging is negative, and speech does not improve, may need to consider LP to evaluate for brainstem encephalitis Consult date: 04/18/22 Time Seen: 09:55 Reason for consult: Concern for stroke HPI: Silvana Huff is a 37 year old female with a history of hyperthyroidism who presented yesterday due to weakness and slurred speech. Patient had had vomiting for the past 2 weeks, and the past two days was unable to get out of bed. She woke up yesterday morning and had garbled speech and generalized weakness. She had taken Sudafed several days ago due to fullness in her ears. Mother found her yesterday with slurred speech and weakness. EMS was called and they noted that her speech was slurred and left side seemed weakness. She was taken to [place] [facility]. Labs were consistent with dehydration. She also had undetectable TSH level (has not been compliant with thyroid medications). UDS was positive amphetamines and cannabinoids. Patient denies any ilicit drug use other than marijuana, although does have a history of other drug use in the past. CT head was negative for acute process. CTA abd/pelvis showed findings concerning for bilateral pyelonephritis, although UA was negative. Her HgbA1c was 6.6. She was started on antibiotics and admitted for further evaluation. Review of Systems Review of Systems: Patient unable to give history due to her speech ROS unobtainable: Yes unobtainable due to medical condition [facility] Past Medical History Medical History No significant medical problems Surgical History Surgical History History of repair of pyloric stenosis Family History Family History Other Diabetes mellitus Social History Social History Social History: The patient lives in [place]. She is recently from her as detailed in HPI. They have 2 young daughters. She is a social smoker. No reports of alcohol abuse. Occasional marijuana use. Prior history of illicit substance abuse though not well documented. Her mother Lakshmi Bruno is her next of kin, . Meds Home Medications and Allergies Home Medications Medication Instructions Recorded Confirmed Type ergocalciferol (vitamin D2) 1,250 1,250 mcg PO 1XD 04/17/22 04/17/22 History mcg (50,000 unit) capsule folic acid 1 mg tablet 1 mg PO 1XD 04/17/22 04/17/22 History terbinafine HCl 250 mg tablet 250 mg PO 1XD 04/17/22 04/17/22 History Allergies Allergy/AdvReac Type Severity Reaction Status Date / Time No Known Allergies Allergy Verified 04/17/22 14:36 Vital Signs Vital Signs - 24 hr 04/17/22 13:33 04/17/22 14:34 04/17/22 14:39 Temperature 37.1 C Pulse Rate 107 H 104 H Respiratory Rate 28 H Blood Pressure 142/99 H Pulse Oximetry 100 100 Oxygen Delivery Room Air Nasal Cannula Oxygen Flow Rate 2 04/17/22 14:10 04/17/22 14:15 04/17/22 14:18 Temperature Pulse Rate 112 H 110 H 107 H Respiratory Rate 27 H 24 H 22 H Blood Pressure 131/101 H Pulse Oximetry 100 100 100 Oxygen Delivery Oxygen Flow Rate 04/17/22 14:30 04/17/22 14:3
[2022-04-18] MEDS: POTASSIUM CHLORIDE INJ 40 MEQ in SODIUM CHLORIDE 0.9% IV 500 ML 130 MEQ IVPB (09:56)
--- NOTE | 2022-04-18 11:05 | PM.CNCAR ---
Assessment and Plan Assessment and plan (1) Sinus tachycardia: Code(s): R00.0 - Tachycardia, unspecified Status: Acute Assessment and Plan: Tele shows sinus tachycardia, no evidence of arrhythmias. Caused by underlying issues, would not treat with medication at this time. Initial ECG on presentation shows sinus tachycardia with what appears to be diffuse ST depressions or LVH with repolarization changes. Repeat ECG shows sinus tachycardia with improvement in ST depressions and is more consistent with LVH with secondary repolarization changes. An echo has been ordered - will follow up on results. At this time, there is no evidence of ACS. Her troponins were negative as well x 4. Her TSH is undetectable and her FT4 is mildly elevated - will defer to hospitalist for management. History of Present Illness History of Present Illness Consult date/time: 04/18/22 11:05 Requesting physician: Emelia Garcia MD Consult reason: Other (tachycardia, abnormal ECG) Reason For Visit: pyelonephritis Narrative: This is a 37-year-old female who we are being consulted for tachycardia and abnormal EKG. Patient is not able to talk to me this AM. She is awake and alert and following commands, however, cannot open her mouth. She can squeeze my hand with her left hand strongly, however, it is much weaker with her right hand. History is obtained from the chart. Per the chart, patient presented with weakness and slurred speech. Most of the history obtained on admission was from her mother. Patient was having fullness and pressures in her ear and had taken 1 dose of Sudafed for relief, which did knock her out. Mother found patient in bed with slurred speech, and was found with vomit as well. UDS positive for amphetamines. Review of Systems Review of Systems: ROS unobtainable: Yes unobtainable due to medical condition [facility] Past Medical History Medical History No significant medical problems Surgical History Surgical History History of repair of pyloric stenosis Family History Family History Other Diabetes mellitus Social History Social History Social History: The patient lives in [place]. She is recently from her as detailed in HPI. They have 2 young daughters. She is a social smoker. No reports of alcohol abuse. Occasional marijuana use. Prior history of illicit substance abuse though not well documented. Her mother Lakshmi Bruno is her next of kin, . Meds Home Medications and Allergies Home Medications Medication Instructions Recorded Confirmed Type ergocalciferol (vitamin D2) 1,250 1,250 mcg PO 1XD 04/17/22 04/17/22 History mcg (50,000 unit) capsule folic acid 1 mg tablet 1 mg PO 1XD 04/17/22 04/17/22 History terbinafine HCl 250 mg tablet 250 mg PO 1XD 04/17/22 04/17/22 History Allergies Allergy/AdvReac Type Severity Reaction Status Date / Time No Known Allergies Allergy Verified 04/17/22 14:36 Vital Signs Vital Signs - 24 hr 04/17/22 13:33 04/17/22 14:34 04/17/22 14:39 Temperature 37.1 C Pulse Rate 107 H 104 H Respiratory Rate 28 H Blood Pressure 142/99 H Pulse Oximetry 100 100 Oxygen Delivery Room Air Nasal Cannula Oxygen Flow Rate 2 04/17/22 14:10 04/17/22 14:15 04/17/22 14:18 Temperature Pulse Rate 112 H 110 H 107 H Respiratory Rate 27 H 24 H 22 H Blood Pressure 131/101 H Pulse Oximetry 100 100 100 Oxygen Delivery Oxygen Flow Rate 04/17/22 14:30 04/17/22 14:31 04/17/22 14:32 Temperature Pulse Rate 124 H 118 H 104 H Respiratory Rate 25 H 21 H 26 H Blood Pressure 103/91 H 133/96 H Pulse Oximetry 100 100 100 Oxygen Delivery Oxygen Flow Rate 04/17/22 14:33 04/17/22 14:45 04/17/22 14:46 Tempera
--- NOTE | 2022-04-18 11:39 | PCPTNOTE ---
Patient going down for an MRI will check on patient later after bed rest order is removed
--- NOTE | 2022-04-18 11:41 | PCSTNOTE ---
Attempted bedside swallowing evaluation. At this time, patient is unable to swallow. Swallow reflex could not be facilitated using strategic cues including verbal and tactile cues. Recommend NPO at this time. Thank you for the referral of this patient.
[2022-04-18 11:51] LABS: Glucose Point of Care 171 mg/dl (65-105)
--- NOTE | 2022-04-18 12:32 | PCOTNOTE ---
Attempted OT evaluation, patient is currently off the unit for testing. Will follow and attempt at later time.
[2022-04-18] MEDS: SODIUM CHLORIDE 0.9% IV 1,000 ML 125 ML IV CONT (13:39)
--- NOTE | 2022-04-18 14:07 | PM.IMPN ---
Progress Note: A&P Assessment and Plan (1) Slurred speech: Code(s): R47.81 - Slurred speech Status: Acute Assessment and Plan: 04/18/2022 interval history: unfortunately patient still has slurred speech unable to provide any review of symptoms or history, CT scan of the head was negative for any acute injury however MRI of the brain showed:1. Acute cortical infarcts in the frontoparietal regions, left worse than right. 2. Cortical infarcts involving the medial posterior frontal lobes, left worse than right, likely chronic. communicated with neurologist will start the patient aspirin 81 mg, Lipitor 80 mg, and will do CTA of the head and neck, cardiac echo is pending, and will do hypercoagulability test, will have a PT OT ST evaluate the patient. patient will benefit going to acute rehab. (2) Dehydration: Code(s): E86.0 - Dehydration Status: Acute (3) Lactic acidosis: Code(s): E87.20 - Acidosis, unspecified Status: Acute (4) Electrolyte imbalance: Code(s): E87.8 - Other disorders of electrolyte and fluid balance, not elsewhere classified Status: Acute (5) Diabetes mellitus, new onset: Code(s): E11.9 - Type 2 diabetes mellitus without complications Status: Acute (6) Oral thrush: Code(s): B37.0 - Candidal stomatitis Status: Acute (7) Hyperthyroidism: Code(s): E05.90 - Thyrotoxicosis, unspecified without thyrotoxic crisis or storm Status: Acute (8) Polysubstance abuse: Code(s): F19.10 - Other psychoactive substance abuse, uncomplicated Status: Acute (9) Abnormal computed tomography of abdomen and pelvis: Code(s): R93.5 - Abnormal findings on diagnostic imaging of other abdominal regions, including retroperitoneum Status: Acute Plan The patient presented to the emergency department today via EMS from home after her mom found her in bed with slurred speech and weakness. She was concerned that the patient may be having a stroke though brain CT was normal on arrival today. Aside from the slurred speech she has no gross focal deficits on exam though does have generalized weakness. I am not certain why her speech is so slurred; her mouth is extremely dry and she is very dehydrated which I suppose could be causing some issues. Aside from thrush, her oral exam was unremarkable and tongue and uvula are midline. She did cough after taking a drink of water through a straw thus I think an MRI of the brain may be prudent although stroke, myasthenia gravis, etc. seem less likely. I will ask the neurologist to see her in consultation for their opinion and recommendations. For now the patient will be NPO and aspiration precautions will be initiated. Conversely she may very well be intoxicated causing this slurred speech however she adamantly denies drug use aside from occasional marijuana. Drug screen was positive for amphetamines which she denies; she took Sudafed a couple of days ago but I am not certain 1 dose would show up positive on her drug screen. Acetaminophen and salicylate levels were normal. There is no evidence of trauma on exam. While her TSH is nearly undetectable her T4 is only mildly elevated thus thyrotoxicosis or impending thyroid storm seems less likely. She is tachycardic however she has no symptoms with that. At this time I do not think it is necessary to start her on a beta-katelynn and we would consider starting methimazole probably as an outpatient. EKG was abnormal though she has had negative troponins thus far and she has absolutely no chest pain. Repeat EKG this evening to re-evaluate ST segment changes. Echocardiogram has been ordered for a.m. She had several electrolyte abnormalities on arrival today including hyponatremia and hypokalemia, which are being replaced and monitored. Lactic acid level was 5.3 on arrival and she is being aggressively hydrated with repeat lactic acid level pending. Blood cultures and urine cultures h
[2022-04-18 15:44] LABS: Erythrocyte Sedimentation Rate 6 mm/hr (0-20)
[2022-04-18 15:59] LABS: Rheumatoid Factor < 8.6 IU/ML (<12)
[2022-04-18 16:28] LABS: Glucose Point of Care 144 mg/dl (65-105)
--- NOTE | 2022-04-18 17:18 | ECG_ITS ---
Measurements Intervals [place] Rate: 119 P: 82 HI: 237 QRS: 78 QRSD: 144 T: 270 QT: 375 QTc: 528 Interpretive Statements SINUS TACHYCARDIA ST AND T ABNORMALITY CONSIDER INFEROLATERAL ISCHEMIA ABNORMAL ECG COMPARED TO ECG 04/17/2022 23:56:33 NO SIGNIFICANT CHANGE Electronically Signed On 04-19-2022 12:27:43 CDT by Alex Richardson M.D.
[2022-04-18] MEDS: ASPIRIN 300 MG SUPPOSITORY RECTAL (17:45)
--- NOTE | 2022-04-18 18:23 | ED.NEUROSD ---
HPI - Neuro Symptoms/Deficit General Chief Complaint: Suspected CVA Stated Complaint: sick x 2 days Time Seen by Provider: 04/17/22 13:35 Related Data Home Medications Medication Instructions Recorded Confirmed ergocalciferol (vitamin D2) 1,250 1,250 mcg PO 1XD 04/17/22 04/17/22 mcg (50,000 unit) capsule folic acid 1 mg tablet 1 mg PO 1XD 04/17/22 04/17/22 terbinafine HCl 250 mg tablet 250 mg PO 1XD 04/17/22 04/17/22 Allergies Allergy/AdvReac Type Severity Reaction Status Date / Time No Known Allergies Allergy Verified 04/17/22 14:36 [facility] Past Medical History Medical History No significant medical problems Surgical History Surgical History History of repair of pyloric stenosis Family History Family History Other Diabetes mellitus Social History Social History Social History: The patient lives in [place]. She is recently from her as detailed in HPI. They have 2 young daughters. She is a social smoker. No reports of alcohol abuse. Occasional marijuana use. Prior history of illicit substance abuse though not well documented. Her mother Lakshmi Bruno is her next of kin, . Course Vital Signs Vital signs: Vital Signs Temperature 37.1 C 04/17/22 13:33 Pulse Rate 107 H 04/17/22 13:33 Respiratory Rate 28 H 04/17/22 13:33 Blood Pressure 142/99 H 04/17/22 13:33 Pulse Oximetry 100 04/17/22 13:33 Oxygen Delivery Room Air 04/17/22 13:33 Temperature 37.2 C 04/18/22 16:00 Pulse Rate 116 H 04/18/22 16:00 Respiratory Rate 20 04/18/22 16:00 Blood Pressure 138/91 H 04/18/22 16:00 Pulse Oximetry 95 04/18/22 16:00 Oxygen Delivery Room Air 04/18/22 08:30 Oxygen Flow Rate 2 04/17/22 14:34 MDM - Neuro Symptoms/Deficit Lab Data Result diagrams: 04/18/22 05:18 04/18/22 05:18 Labs: Lab Results 04/17/22 04/17/22 04/17/22 Range/Units 14:11 14:17 14:17 WBC (4.5-10.0) K/mm3 RBC (4.2-5.4) M/mm3 Hgb (12.0-15.0) g/dL Hct (37.0-47.0) % MCV (80-100) fl MCH (26-34) pg MCHC (32-36) g/dl RDW (11.5-14.5) % Plt Count (150-375) k/mm3 MPV (7.4-10.4) fl Immature Gran % (Auto) (0-0.5) % Neut % (Auto) (45.5-73.1) % Lymph % (Auto) (18.3-44.2) % Dundy % (Auto) (2.6-8.5) % Eos % (Auto) (0-4.4) % Baso % (Auto) (0.2-1.2) % Lymph # (Auto) (0.9-3.2) K/mm3 Dundy # (Auto) (0.1-0.6) K/mm3 Eos # (Auto) (0-0.3) K/mm3 Baso # (Auto) (0.0-0.1) K/mm3 Abs Immat Gran (auto) (0.00-0.031) K/mm3 Absolute Neuts (auto) (1.3-6.7) K/mm3 Absolute Nucleated RBC (0.0-0.012) K/mm3 Nucleated RBC % (0.0-0.2) % ESR (0-20) mm/hr PT (11.1-14.7) Seconds INR APTT (22.3-36.8) SECONDS D-Dimer (<0.48) ug/mL Factor V Leiden Mutat Factor V Mutat Interp Methemoglobin (0-1.5) %THb Sodium (137-145) mmol/L Potassium (3.4-5.0) mmol/L Chloride (98-107) mmol/L Carbon Dioxide (22-30) mmol/L Anion Gap (8-16) mmol/L BUN (7-17) mg/dL Creatinine (0.7-1.0) mg/dL Estim Creat Clear Calc ml/min Estimated GFR (59 - ) Glucose (65-110) mg/dL POC Capillary Glucose 258 H (65-105) mg/dl Hemoglobin A1c 6.6 H (<5.7) % Lactic Acid (0.7-2.0) mmol/L Calcium (8.4-10.2) mg/dL Magnesium (1.6-2.3) mg/dL Total Bilirubin (0.2-1.3) mg/dL AST (14-36) U/L ALT (6-35) U/L Alkaline Phosphatase (38-126) U/L Total Creatine Kinase (30-135) U/L Troponin I (0.000-0.034) ng/mL C-Reactive Protein (<1.0) mg/dL Total Protein (6.3-8.2) g/dL Albumin (3.5-5.1) g/dL Vitamin B12 (239-931) pg/mL Beta-Hydroxybuty
--- NOTE | 2022-04-18 20:30 | PM.EVENT ---
Event Note Event Note Event Note: I received a call from the patient's nurse at 20:15 with an update/change in condition. Nurse had recently come on shift and she is concerned with the patient's change in condition when compared to how she was last evening. More specifically the patient seemed to have increasing right-sided weakness and she was having difficulties controlling her secretions with copious amounts of drooling and inability to swallow and spit. Her blood pressure was also running high and she was tachycardic with rates ranging between 120 to 150. Telemetry reviewed and it appears that she is in a sinus tachycardia. On exam she was alert. She had horizontal nystagmus and had difficulties with accommodation. She seemed to understand what I was saying and attempted to follow commands. Her left hand station mechanic apprentice was quite strong. She had difficulties with right hand barber stylist and was somewhat spastic with the right arm. She could not follow any other commands. She was tachycardic as detailed above. No clonus or seizure-like activity. Suction was initiated bedside but it became clear that she was unable to tolerate her own secretions and the case was discussed with Dr. Morales (neurology) and Dr. Amaya (critical care) and a mutual decision was made to go ahead and transfer the patient to the ICU for intubation as she could not protect her airway. I spoke with the patient's mother, Lakshmi via phone and she gave consent for the patient to be intubated. She was intubated per Dr. Serrano (ED physician) and vent settings and sedation orders were given by the pit slagman. She was sent for repeat imaging of the brain as well as the chest, abdomen, and pelvis. imaging showed layering material in the trachea and left mainstem bronchus which may reflect aspirated or partially expect rated material. She was started on Zosyn for aspiration. Blood pressures have improved now that she is on a propofol drip for sedation, now running in the 130 systolic. Heart rate has also improved. Critical Care Time Critical Care Time: Yes Total Critical Care Time: 40 Attestation: Due to a high probability of clinically significant, life threatening deterioration, the patient required my highest level of preparedness to intervene emergently and I personally spent this critical care time directly and personally managing the patient. This critical care time included obtaining a history; examining the patient; pulse oximetry; ordering and review of studies; arranging urgent treatment with development of a management plan; evaluation of patient's response to treatment; frequent reassessment; and discussions with other providers. Please see Assessment and Plan section and the rest of the note for further information on patient assessment and treatment
[2022-04-18 20:43] LABS: Glucose Point of Care 211 mg/dl (65-105)
--- NOTE | 2022-04-18 20:48 | PC.NURSE ---
Pt is very anxious and having abnormal movements, head is hyperextended and arms posturing at side. Mario Hazel notified and here to see pt.
--- NOTE | 2022-04-18 21:21 | PC.NURSE ---
Pt being transferred to ICU 9 S bar faxed and report called to Celio NOLAN. Pt transferred per bed.
[2022-04-18] MEDS: ROCURONIUM BROMIDE 50 MG/5 ML VIAL IV PUSH (21:55)
[2022-04-18] MEDS: ETOMIDATE 20 MG/10 ML AMPUL IV PUSH (21:55)
--- NOTE | 2022-04-18 22:10 | ED.PROCEDURE ---
Procedures Intubation Intubation Date: 04/18/22 Intubation Time: 22:00 Consent: verbal consent from pt's mother A pre-procedural Time-Out was completed immediately before starting the procedure and confirmed: Patient Identification, Site, Procedure, Patient Position and the Availability of Requisite Equipment: Yes Sedative: etomidate Mg given: 20 Paralytic: rocuronium Mg given: 50 Laryngoscope: fiber optic video scope ET tube size: 7.5 Tube secured depth (cm): 23 Tube secured location: lips Tube placement confirmation: visualized tube passing through cords, equal breath sounds bilaterally, no breath sounds over epigastrium and confirmation by capnometry Patient tolerated procedure: well and no complications Intubation complications: none Additional comments: Informed pt losing airway likely 2/2 CVA. At bedside she was gurgling, 100% on NRB, eyes open but not speaking or vocalizing, did not seem to understand when I spoke with her and not following commands. Senior Manufacturing Supervisor and neuro requesting intubation for airway protection. CXR obtained to check tube placement.
--- NOTE | 2022-04-18 22:16 | ECG_ITS ---
Measurements Intervals [place] Rate: 135 P: 70 TX: 84 QRS: 93 QRSD: 85 T: -82 QT: 248 QTc: 372 Interpretive Statements SINUS TACHYCARDIA WITH SHORT TX INTERVAL WITH OCCASIONAL SUPRAVENTRICULAR PREMATURE COMPLEXES BORDERLINE RIGHT AXIS DEVIATION [QRS AXIS > 90] ST AND T-WAVE ABNORMALITY CONSIDER INFEROLATERAL ISCHEMIA COMPARED TO ECG 04/18/2022 17:30:50 NO SUBSTANTIAL DIFFERENCE Electronically Signed On 04-19-2022 12:31:54 CDT by Alex Richardson M.D.
[2022-04-18] MEDS: PROPOFOL IV EMULSION 100 ML 3.79 MG IV CONT (22:24)
[2022-04-18] MEDS: METOPROLOL TARTRATE INJ 5 MG/5 ML VIAL IV PUSH (22:59)
[2022-04-18 23:06] LABS: Glucose Point of Care 282 mg/dl (65-105)
--- NOTE | 2022-04-18 23:33 | PC.NURSE ---
This patient, Silvana Huff, was received from [ [facility]] on 04/18/22 [id number]. Patient/family oriented to unit policies and routines
[2022-04-19] VITALS (26 sets, daily range): BP systolic 92–125; BP diastolic 67–98; PULSE 106–146; RESP 14–28; TEMP 36.1–37.2; O2SAT 97–100; BMI 22.4
[2022-04-19 00:54] LABS: Alveolar/Arterial O2 Gradient 152.5 mmHg; Base Excess ABG -4.9 mEq/l (+/-2.0); Carboxyhemoglobin 0.3 % THb (0-2.0); Fractional Inspired Oxygen 40 %; HCO3 ABG 16.4 mEq/l (22.0-26.0); Methemoglobin ABG 0.4 %THb (0-1.5); Oxygen Content ABG 24.4 %vol (16.0-22.0); Oxygen Saturation ABG 98.2 % (95.0-100.0); Oxyhemoglobin 97.2 % THb (90.0-100.0); PO2 ABG 105.6 mmHg (80.0-100.0); PO2 FiO2 Ratio Arterial Blood 2.64 %; Reduced Hemoglobin 2.1 %THb (0-5.0); Total Hemoglobin 17.8 g/dL (12.0-18.0); pH ABG 7.459 (7.350-7.450)
[2022-04-19 01:00] LABS: PCO2 ABG 23.6 mmHg (35.0-45.0)
[2022-04-19 01:01] LABS: Arterial Blood Gas PEEP 5 cmH2O; Arterial Blood Gas Tidal Volume 400 ml; Arterial Blood Gas Vent Mode CMV; Arterial Blood Gas Ventilator rate 14 /MIN; Device VENTILATOR; Site Drawn LEFT BRACHIAL
[2022-04-19] MEDS: INSULIN ASPART (*BKC) 100 UNITS/ML SUB-Q ×2 (01:07→12:56)
[2022-04-19] MEDS: ENOXAPARIN 60 MG/0.6 ML SYRINGE SUB-Q (02:48)
[2022-04-19 05:13] LABS: Hemoglobin 16.6 g/dL (12.0-15.0); Mean Corpuscular HGB Conc 31.9 g/dl (32-36); Mean Corpuscular Hemoglobin 30.4 pg (26-34); Mean Corpuscular Volume 95.2 fl (80-100); Mean Platelet Volume 10.5 fl (7.4-10.4); Platelet Count Result 383 k/mm3 (150-375); Red Blood Count 5.46 M/mm3 (4.2-5.4); Red Cell Distribution Width 13.1 % (11.5-14.5); White Blood Count 35.1 K/mm3 (4.5-10.0)
[2022-04-19 05:43] LABS: Alveolar/Arterial O2 Gradient 69.3 mmHg; Base Excess ABG -1.7 mEq/l (+/-2.0); Carboxyhemoglobin 0.3 % THb (0-2.0); Fractional Inspired Oxygen 30 %; HCO3 ABG 19.4 mEq/l (22.0-26.0); Methemoglobin ABG 0.4 %THb (0-1.5); Oxygen Content ABG 24.3 %vol (16.0-22.0); Oxygen Saturation ABG 98.5 % (95.0-100.0); Oxyhemoglobin 97.4 % THb (90.0-100.0); PCO2 ABG 25.8 mmHg (35.0-45.0); PO2 ABG 114.3 mmHg (80.0-100.0); PO2 FiO2 Ratio Arterial Blood 3.81 %; Reduced Hemoglobin 1.9 %THb (0-5.0); Total Hemoglobin 17.7 g/dL (12.0-18.0); pH ABG 7.495 (7.350-7.450)
[2022-04-19 05:45] LABS: Device VENTILATOR; Modified Allen's Test Pass; Site Drawn RIGHT RADIAL
[2022-04-19 05:46] LABS: Arterial Blood Gas PEEP 5 cmH2O; Arterial Blood Gas Tidal Volume 400 ml; Arterial Blood Gas Vent Mode CMV; Arterial Blood Gas Ventilator rate 14 /MIN
[2022-04-19 05:49] LABS: Alanine Aminotransferase 20 U/L (6-35); Albumin Level 4.3 g/dL (3.5-5.1); Alkaline Phosphatase 80 U/L (38-126); Anion Gap 22 mmol/L (8-16); Aspartate Amino Transferase 31 U/L (14-36); Bilirubin,Total 1.1 mg/dL (0.2-1.3); Blood Urea Nitrogen 16 mg/dL (7-17); Carbon Dioxide 14 mmol/L (22-30); Chloride 104 mmol/L (98-107); Estimated CRCL calculation 101 ml/min; Estimated Glomerular Filt Rate > 60; Glucose 180 mg/dL (65-110); Magnesium 2.4 mg/dL (1.6-2.3); Potassium 3.6 mmol/L (3.4-5.0); Sodium 140 mmol/L (137-145)
--- NOTE | 2022-04-19 07:05 | PCOTNOTE ---
Patient currently intubated in ICU, discharging from OT at this time. Please re-order when medically appropriate.
--- NOTE | 2022-04-19 07:49 | PCPTNOTE ---
Patient currently intubated in ICU, discharging from PT at this time. Please re-order when medically appropriate.
[2022-04-19 08:30] LABS: Rapid Plasma Reagin Non-Reactive (NonReactive)
--- NOTE | 2022-04-19 08:52 | PCSTNOTE ---
Evaluation could not be completed as patient has been intubated. May d/c order and have physician re-order when patient is able.
[2022-04-19] MEDS: NYSTATIN 100,000 UNITS/ML SUSP 5 ML ORAL.SUSP PO ×4 (09:04→20:11)
[2022-04-19] MEDS: MINERAL OIL/WHITE PETROLATUM OINTMENT 1 APPLIC EACH EYE ×2 (09:04→20:12)
[2022-04-19] MEDS: LACTATED RINGERS 1,000 ML 999 ML IV CONT ×2 (09:04→18:35)
--- NOTE | 2022-04-19 09:29 | PCSTNOTE ---
Speech Therapy order discontinued at this time; patient intubated and unable to participate since order written on 04/17. Physician please re-order when patient is able.
--- NOTE | 2022-04-19 09:49 | WPDCNINT ---
Assessment and Plan Assessment and plan (1) Acute respiratory failure: Code(s): J96.00 - Acute respiratory failure, unspecified whether with hypoxia or hypercapnia Status: Acute Assessment and Plan: Acute respiratory failure secondary to inability to protect her airway from CVA and also aspiration pneumonia Patient was intubated yesterday evening as she was unable to clear secretions CT chest done post intubation showed Material in the trachea and left mainstem bronchus that may be mucous or aspiration ABG and chest x-ray reviewed Vent settings reviewed and tidal volume decreased to 350 Weaning will depend on neurological improved (2) Aspiration pneumonia: Code(s): J69.0 - Pneumonitis due to inhalation of food and vomit Status: Acute Assessment and Plan: Blood and urine cultures have been done Check sputum culture On empiric Zosyn (3) Sinus tachycardia: Code(s): R00.0 - Tachycardia, unspecified Status: Acute Assessment and Plan: Secondary to hypovolemia, sepsis, pain I will give patient 1 L fluid bolus and start her maintenance IV fluids Echocardiogram done and report pending She is on empiric Zosyn (4) Pyelonephritis: Code(s): N12 - Tubulo-interstitial nephritis, not specified as acute or chronic Status: Acute Assessment and Plan: CT scan suggested findings of pyelonephritis Her UA only showed 4-6 WBCs She is on empiric Zosyn Urine culture has been ordered (5) CVA (cerebral vascular accident): Code(s): I63.9 - Cerebral infarction, unspecified Status: Acute Assessment and Plan: Patient was admitted on 04/17 with slurred speech. MRI showed CVA Patient was evaluated by Neurology See below for imaging Workup for stroke is in process Blood cultures and echocardiogram is ordered to evaluate for cardioembolic source -add empiric vancomycin Hypercoagulability workup has been ordered She is on aspirin statin and anticoagulation. I will have to hold anticoagulation due to upper GI bleed Repeat head CT done this morning did not show any cerebral edema Head CT 04/19 ?Acute infarcts in the frontoparietal regions, left worse than right. Head neck CTA 04/18 Examination is severely limited by motion artifact. Within that constraint, no large vessel occlusion is detected. No definite severe carotid or vertebral artery stenosis CTA neck and chest 04/18 No etiology for the patient's symptoms. Brain MRI 04/18 IMPRESSION: 1. Acute cortical infarcts in the frontoparietal regions, left worse than right. 2. Cortical infarcts involving the medial posterior frontal lobes, left worse than right, likely chronic. (6) Diabetes mellitus, new onset: Code(s): E11.9 - Type 2 diabetes mellitus without complications Status: Acute Assessment and Plan: SSI (7) Sepsis: Code(s): A41.9 - Sepsis, unspecified organism Status: Acute Assessment and Plan: Sputum blood and urine cultures have been sent Pyelonephritis and possible aspiration pneumonia On empiric Zosyn. Add empiric vancomycin until blood culture and echo results are back Will give 1.5 L of fluid bolus and start her maintenance IV fluids Monitor lactic acid level (8) Upper GI bleed: Code(s): K92.2 - Gastrointestinal hemorrhage, unspecified Status: Acute Assessment and Plan: Patient's OG output is bloody Hold anticoagulation IV PPI q.12 hours Monitor serial hemoglobin Consult GI Her Coags were normal (9) Hyperthyroidism: Code(s): E05.90 - Thyrotoxicosis, unspecified without thyrotoxic crisis or storm Status: Acute Assessment and Plan: Her TSH was very low on presentation, free T4 was mildly elevated, total T3 was low and free T3 is pending Will add beta-katelynn Plan DVT prophylaxis -patient on therapeutic dose of Lovenox but will discontinue at this time due to GI bleeding Stress ulcer prophylaxis -PPI IV q.12 hours
[2022-04-19] MEDS: KCL 20 MEQ/0.45% NS 1,000 ML 100 ML IV CONT (10:12)
[2022-04-19] MEDS: LACTATED RINGERS 500 ML 999 ML IV CONT (10:57)
[2022-04-19 11:38] LABS: Glucose Point of Care 299 mg/dl (65-105)
--- NOTE | 2022-04-19 12:35 | WPDNEUROPN ---
Progress Note: A&P Assessment and Plan (1) CVA (cerebral vascular accident): Code(s): I63.9 - Cerebral infarction, unspecified Status: Acute Plan bihemispheric stroke with no obvious etiology particularly echocardiogram is normal though the symptomatology was going on for a while at home raising the possibility of hypotensive episode resulting in history possibility of emboli also like at this stage when stable EEG will be obtained for the long-term decision and also would like to repeat CTA of the brain and neck when possible Subjective Date/time seen: 04/19/22 12:35 Interval history: 37 years old lady with ongoing history of 1. Newly diagnosed diabetes mellitus 2. Hyperthyroidism 3. Admitted for the complaints of slurred speech with generalized weakness. She was noted to have vomiting for at least couple of weeks with inability to get out of the bed for 48 hours subsequently garbled speech and generalized weakness also noted Maryanne more weak on the left side drug screen was positive for amphetamines and cannabinoids with history of other drug use in the past CTA of the abdomen pelvis with bilateral pyelonephritis and her hemoglobin A1c was 6.6. Has been seen by the disposition clerk with no evidence of arrhythmia sinus tachycardia, has been in intensive care for acute respiratory failure can use to have decreased tidal volume in addition to 90s secondary to inhalation, head neck CTA with no large vessel occlusion but brain MRI with acute cortical infarcts in the frontoparietal region left worse than right, most recent echocardiogram nonsignificant, initial drug screen was positive for amphetamines and cannabinoids and repeat CT scan on 04/18 consisted with acute infarct in frontoparietal regions left worse than the right Review of Systems Review of Systems: All systems reviewed & are unremarkable except as noted in HPI and below Exam Narrative: intubated, sedated, unresponsive to painful stimuli except slight movements of the right hand, does not regard the verbal or visual stimuli, no extraocular movements to dolls, facial grimace absent, and no spontaneous movements of the upper and lower extremities with absent deep tendon reflexes and questionable plantar responses Objective Data Vital Signs Vital Signs: Vital Signs - 24 hr 04/18/22 14:00 04/18/22 16:00 04/18/22 16:00 Temperature 37.2 C 37.2 C Pulse Rate 118 H 118 H 116 H Respiratory Rate 20 20 Blood Pressure 138/91 H 138/91 H Pulse Oximetry 95 95 Oxygen Delivery Fraction of Inspired Oxygen 04/18/22 20:33 04/18/22 20:00 04/18/22 20:00 Temperature 36.6 C Pulse Rate 128 H 126 H Respiratory Rate 22 H Blood Pressure 147/100 H Pulse Oximetry 94 94 Oxygen Delivery Room Air Room Air Fraction of Inspired Oxygen 04/18/22 22:05 04/18/22 22:24 04/18/22 22:55 Temperature Pulse Rate 143 H 143 H 153 H Respiratory Rate 14 Blood Pressure Pulse Oximetry 100 98 Oxygen Delivery Mechanical Ventilation Mechanical Ventilation Fraction of Inspired Oxygen 100 50 04/18/22 22:59 04/18/22 21:30 04/18/22 21:45 Temperature 36.6 C Pulse Rate 152 H 130 H 130 H Respiratory Rate 31 H 29 H Blood Pressure 146/100 H 153/109 H Pulse Oximetry 100 100 Oxygen Delivery Fraction of Inspired Oxygen 04/18/22 22:00 04/18/22 22:15 04/18/22 22:30 Temperature Pulse Rate 131 H 148 H Respiratory Rate 29 H 14 14 Blood Pressure 171/119 H 176/125 H 183/123 H Pulse Oximetry 99 96 100 Oxygen Delivery Fraction of Inspired Oxygen 04/18/22 22:45 04/18/22 23:00 04/18/22 23:15 Temperature Pulse Rate 152 H 151 H 102 H Respiratory Rate 14 14 21 H Blood Pressure 168/115 H 137/105 H 103/80 Pulse Oximetry 100 98 95 Oxygen Delivery Fraction of Inspired Oxygen 04/19/22 00:00 04/19/22 00:15 04/19/22 00:30 Temperature 36.6 C Pulse Rate 112 H 108 H 106 H Respiratory Rate 14 14 23 H Blood Pressure 112/83 113/89 110
[2022-04-19] MEDS: atenoloL 25 MG TABLET FEED TUBE (12:56)
[2022-04-19 13:36] LABS: Hematocrit 44.9 % (37.0-47.0); Hemoglobin 15.3 g/dL (12.0-15.0)
[2022-04-19 13:47] LABS: Lactic Acid Reflex 3.4 mmol/L (0.7-2.0)
[2022-04-19 14:30] LABS: Procalcitonin 0.5 ng/mL
--- NOTE | 2022-04-19 14:42 | WPDGICN ---
Assessment and Plan Assessment and plan (1) Upper GI bleed: Code(s): K92.2 - Gastrointestinal hemorrhage, unspecified Status: Acute Assessment and Plan: dark red blood emanating from OG tube. Hemoglobin still stable. Initially 17.4 when she was likely somewhat dehydrated. Now 15.3. EGD will be done tomorrow morning. (2) Sepsis: Code(s): A41.9 - Sepsis, unspecified organism Status: Acute Assessment and Plan: White blood count over 35,000. Cultures are pending. She is covered with antibiotics. (3) Aspiration pneumonia: Code(s): J69.0 - Pneumonitis due to inhalation of food and vomit Status: Acute Assessment and Plan: Chest x-ray does show material in the trachea and left mainstem bronchus. The patient became more more somnolent yesterday then unable to swallow and was then intubated for airway protection. (4) CVA (cerebral vascular accident): Code(s): I63.9 - Cerebral infarction, unspecified Status: Acute Assessment and Plan: Neurology is embarking on a workup. GI Consult Note Consult date/time: 04/19/22 14:42 HPI: Silvana Huff is a 37 year old female who was admitted in a confused state and thought perhaps to have had sustained cerebrovascular accident. A drug screen did show presence of amphetamine in her system. It was suspected that she had aspiration and she developed respiratory failure and required intubation last night. An old G tube was placed and blood was seen almost immediately. The blood was initially more bright red but today is dark red. She has not had bloody stools. Coagulopathy workup is in place. She had been given I believe 1 dose of Lovenox and that has been held secondary to the bleeding. She has been seen by Neurology and workup for stroke is in process. She has had a marked elevation of her white blood count and is certainly some likely septic. Sputum and blood and urine cultures have been sent. She has been started on Zosyn and vancomycin. Review of Systems Review of Systems: ROS unobtainable: Yes unobtainable due to endotracheal tube and unobtainable due to mental status PMFSH Past Medical History Medical History No significant medical problems Surgical History Surgical History History of repair of pyloric stenosis Family History Family History Other Diabetes mellitus Social History Social History Social History: The patient lives in [place]. She is recently from her as detailed in HPI. They have 2 young daughters. She is a social smoker. No reports of alcohol abuse. Occasional marijuana use. Prior history of illicit substance abuse though not well documented. Her mother Lakshmi Bruno is her next of kin, . Smoking status: Former smoker Alcohol intake: never Substance use: former Other substance usage details: unsure type and when mother states long time ago Spiritual care concerns: No Meds Home Medications and Allergies Home Medications Medication Instructions Recorded Confirmed Type ergocalciferol (vitamin D2) 1,250 1,250 mcg PO 1XD 04/17/22 04/17/22 History mcg (50,000 unit) capsule folic acid 1 mg tablet 1 mg PO 1XD 04/17/22 04/17/22 History terbinafine HCl 250 mg tablet 250 mg PO 1XD 04/17/22 04/17/22 History Allergies Allergy/AdvReac Type Severity Reaction Status Date / Time No Known Allergies Allergy Verified 04/17/22 14:36 Vital Signs Vital Signs - 24 hr 04/18/22 16:00 04/18/22 16:00 04/18/22 20:33 Temperature 37.2 C 36.6 C Pulse Rate 118 H 116 H 128 H Respiratory Rate 20 22 H Blood Pressure 138/91 H 147/100 H Pulse Oximetry 95 94 Oxygen Delivery Room Air Fraction of Inspired Oxygen 03/22
[2022-04-19] MEDS: CENTRAL LINE FLUSH 10 ML IV PUSH ×2 (15:02→20:18)
[2022-04-19 16:33] LABS: Reflex Lactic Acid Yes or No Add Lactic
--- NOTE | 2022-04-19 16:35 | ECHO_ITS ---
Patient Info Name: Silvana Huff Age: 37 years : 1985 Gender: Female Ht: 66 in Wt: 129 lbs BSA: 1.65 m2 HR: 130 bpm BP: 92 / 67 mmHg Heart Rhythm: Tachycardia, Sinus Rhythm Technical Quality: Fair Exam Date: 04/19/2022 9:05 AM Exam Location: [facility] Patient Status: Inpatient Admit Date: 04/18/2022 Staff Ordering Physician: Etta Hazel PA-C Hand Chain Maker: Emily Camacho RDCS Attending Provider: Melida Camacho MD Referring Physician: Yasemin CYR; Exam Type: CA echo doppler color flow Study Info Indications R94.31 - Abnormal electrocardiogram ECG EKG R00.0 - Tachycardia, unspecified Complete two-dimensional, color flow and Doppler transthoracic echocardiogram is performed. Summary 1. Complete two-dimensional, color flow and Doppler transthoracic echocardiogram is performed. 2. Left ventricular systolic function is normal, estimated at >70%. 3. There is no increased left ventricular wall thickness. 4. The left ventricular diastolic function is grade I diastolic dysfunction. 5. Right ventricular systolic function is reduced. Left Ventricle Left ventricular chamber dimension is normal. Left ventricular systolic function is normal, estimated at >70%. There is no increased left ventricular wall thickness. The left ventricular diastolic function is grade I diastolic dysfunction. Right Ventricle Right ventricular chamber dimension is normal. Right ventricular systolic function is reduced. Left Atria Left atrial chamber dimension is normal. Right Atria Right atrial chamber dimension is normal. Aortic Valve The aortic valve is not well visualized. There is no aortic valve stenosis. There is no aortic valve regurgitation. Pulmonic Valve The pulmonic valve is not well visualized. Mitral Valve The mitral valve has normal leaflets. There is no mitral valve stenosis. There is no mitral valve regurgitation. Tricuspid Valve The tricuspid valve leaflets are not well visualized. There is trace tricuspid valve regurgitation. Pericardium/Pleural There is no pericardial effusion. Inferior Vena Cava Normal inferior vena cava with <50% collapse upon inspiration consistent with elevated right atrial pressure. Aorta The aortic root size at the sinus of Valsalva is normal. Left Ventricular Outflow Tract Name Value Normal LVOT 2D LVOT Diameter 2.0 cm LVOT Doppler LVOT Peak Gradient 2 mmHg LVOT Mean Gradient 1 mmHg LVOT VTI 6 cm LVOT VTI/AV VTI Ratio 0.7 LVOT Stroke Volume 18 ml LVOT CO 2.5 l/min LVOT CI 1.5 l/min/m2 Mitral Valve Name Value Normal MV Doppler MV Decel Leslie
[2022-04-19] MEDS: PROPOFOL IV EMULSION 100 ML 5.68 MG IV CONT (17:27)
[2022-04-19 17:43] LABS: Glucose Point of Care 116 mg/dl (65-105)
[2022-04-19 18:05] LABS: Lactic Acid 5.3 mmol/L (0.7-2.0)
[2022-04-19] MEDS: FLUCONAZOLE 200 MG/NACL 100 ML 200 MG/100 ML BAG 100 MG IVPB (20:11)
[2022-04-19] MEDS: PANTOPRAZOLE SODIUM IV 40 MG VIAL IV PUSH (20:18)
[2022-04-19 23:58] LABS: Glucose Point of Care 186 mg/dl (65-105)
[2022-04-19] MEDS: KCL 20 MEQ/0.45% NS 1,000 ML 150 ML IV CONT (23:58)
[2022-04-20] VITALS (22 sets, daily range): BP systolic 104–124; BP diastolic 82–96; PULSE 94–137; RESP 15–27; TEMP 36.6–36.9; O2SAT 97–100
[2022-04-20 00:29] LABS: Lactic Acid Reflex 3.2 mmol/L (0.7-2.0)
[2022-04-20 01:11] LABS: Hematocrit 40.6 % (37.0-47.0); Hemoglobin 13.7 g/dL (12.0-15.0)
[2022-04-20] MEDS: CENTRAL LINE FLUSH 10 ML IV PUSH ×3 (05:08→20:33)
[2022-04-20 05:35] LABS: Hematocrit 40.1 % (37.0-47.0); Hemoglobin 13.4 g/dL (12.0-15.0); Mean Corpuscular HGB Conc 33.4 g/dl (32-36); Mean Corpuscular Hemoglobin 29.7 pg (26-34); Mean Corpuscular Volume 88.9 fl (80-100); Mean Platelet Volume 10.4 fl (7.4-10.4); Platelet Count Result 276 k/mm3 (150-375); Red Blood Count 4.51 M/mm3 (4.2-5.4); Red Cell Distribution Width 12.8 % (11.5-14.5); White Blood Count 17.1 K/mm3 (4.5-10.0)
[2022-04-20 05:49] LABS: Alanine Aminotransferase 20 U/L (6-35); Albumin Level 3.6 g/dL (3.5-5.1); Alkaline Phosphatase 56 U/L (38-126); Anion Gap 15 mmol/L (8-16); Aspartate Amino Transferase 30 U/L (14-36); Bilirubin,Total 0.9 mg/dL (0.2-1.3); Blood Urea Nitrogen 16 mg/dL (7-17); Calcium 8.2 mg/dL (8.4-10.2); Carbon Dioxide 22 mmol/L (22-30); Chloride 99 mmol/L (98-107); Estimated CRCL calculation 119 ml/min; Estimated Glomerular Filt Rate > 60; Glucose 187 mg/dL (65-110); Magnesium 1.7 mg/dL (1.6-2.3); Potassium 3.2 mmol/L (3.4-5.0); Sodium 136 mmol/L (137-145)
[2022-04-20 06:07] LABS: Alveolar/Arterial O2 Gradient 48.8 mmHg; Base Excess ABG 1.2 mEq/l (+/-2.0); Carboxyhemoglobin 0.1 % THb (0-2.0); Fractional Inspired Oxygen 30 %; HCO3 ABG 22.8 mEq/l (22.0-26.0); Methemoglobin ABG 0.2 %THb (0-1.5); Oxygen Content ABG 19.5 %vol (16.0-22.0); Oxygen Saturation ABG 98.9 % (95.0-100.0); PCO2 ABG 28.4 mmHg (35.0-45.0); PO2 ABG 131.7 mmHg (80.0-100.0); PO2 FiO2 Ratio Arterial Blood 4.39 %; Reduced Hemoglobin 1.7 %THb (0-5.0)
[2022-04-20 06:09] LABS: Device VENTILATOR; Modified Allen's Test Pass; Site Drawn RIGHT BRACHIAL; pH ABG 7.523 (7.350-7.450)
[2022-04-20 06:10] LABS: Arterial Blood Gas PEEP 5 cmH2O; Arterial Blood Gas Tidal Volume 350 ml; Arterial Blood Gas Vent Mode CMV; Arterial Blood Gas Ventilator rate 14 /MIN
[2022-04-20] MEDS: SODIUM CHLORIDE 0.9% IV 1,000 ML 999 ML IV CONT (08:55)
[2022-04-20] MEDS: MINERAL OIL/WHITE PETROLATUM OINTMENT 1 APPLIC EACH EYE ×2 (08:57→20:32)
[2022-04-20] MEDS: KCL 20 MEQ/0.45% NS 1,000 ML 150 ML IV CONT ×3 (08:57→20:32)
--- NOTE | 2022-04-20 10:02 | PM.PNCARD ---
Progress Note: A&P Assessment and Plan (1) Sinus tachycardia: Code(s): R00.0 - Tachycardia, unspecified Status: Acute Assessment and Plan: Tele shows sinus tachycardia, no evidence of arrhythmias. Caused by underlying issues Given very low TSH, mildly elevated FT4 and low T3, patient was started on beta katelynn. Echocardiogram showing preserved LVEF, grade 1 diastolic dysfunction, and reduced RVSF. Continue telemetry. Subjective Date/time seen: 04/20/22 10:02 Interval history: Reason for visit: Tachycardia, ECG changes MRI showing acute cortical infarcts in the frontoparietal regions, left worse than right. Cortical infarcts involving the medial posterior frontal lobes, left worse than right, likely chronic. Patient was intubated 04/18 for airway protection. Echocardiogram showing preserved LVEF, grade 1 diastolic dysfunction, reduced RVSF. There was dark blood coming from EGD tube. GI consulted, planning for EGD. TSH very low with mildly elevated T4 and low total T3 -- started on beta katelynn. Review of Systems Review of Systems: ROS unobtainable: Yes unobtainable due to medical condition Exam Const: General: no acute distress HENMT: Other: OETT in place Neck: Neck: supple and no JVD Resp: Effort & Inspection: normal respiratory effort Auscultation: diminished lung sounds Other: On mechanical ventilation Cardio: Rate: regular rate and tachycardic Heart sounds: no murmurs GI: GI Palp: Yes Soft to palpation and No Tenderness to palpation present (GI) Skin: General skin exam: normal color Neuro: Other: Sedated Extrem: General: no edema Psych: Other: Sedated Objective Data Vital Signs Vital Signs: Vital Signs - 24 hr 04/19/22 10:42 04/19/22 11:09 04/19/22 12:37 Temperature 36.2 C L Pulse Rate 114 H 119 H 126 H Respiratory Rate 21 H Blood Pressure 125/98 H 115/90 Pulse Oximetry 100 100 100 Oxygen Delivery Mechanical Ventilation Fraction of Inspired Oxygen 04/19/22 12:56 04/19/22 15:07 04/19/22 14:00 Temperature Pulse Rate 128 H 146 H 126 H Respiratory Rate Blood Pressure 103/73 Pulse Oximetry 100 100 Oxygen Delivery Mechanical Ventilation Fraction of Inspired Oxygen 04/19/22 17:27 04/19/22 17:33 04/19/22 12:00 Temperature Pulse Rate 125 H 127 H Respiratory Rate 25 H Blood Pressure Pulse Oximetry 100 Oxygen Delivery Mechanical Ventilation Fraction of Inspired Oxygen 30 30 04/19/22 16:00 04/19/22 12:00 04/19/22 14:00 Temperature Pulse Rate 130 H 127 H Respiratory Rate Blood Pressure Pulse Oximetry Oxygen Delivery Fraction of Inspired Oxygen 30 04/19/22 16:00 04/19/22 18:00 04/19/22 16:00 Temperature 36.3 C L Pulse Rate 127 H 126 H 127 H Respiratory Rate 28 H Blood Pressure 112/85 Pulse Oximetry 100 Oxygen Delivery Fraction of Inspired Oxygen 04/19/22 18:00 04/19/22 12:00 04/19/22 16:00 Temperature Pulse Rate 126 H 130 H 127 H Respiratory Rate 25 H 23 H 28 H Blood Pressure 96/80 L Pulse Oximetry 100 100 100 Oxygen Delivery Mechanical Ventilation Mechanical Ventilation Fraction of Inspired Oxygen 30 30 04/19/22 20:00 04/19/22 20:00 04/19/22 20:00 Temperature Pulse Rate 120 H 122 H Respiratory Rate 25 H Blood Pressure Pulse Oximetry 100 Oxygen Delivery Mechanical Ventilation Fraction of Inspired Oxygen 30 30 04/19/22 20:00 04/19/22 20:00 04/19/22 21:45 Temperature 36.1 C L Pulse Rate 122 H 122 H 112 H Respiratory Rate 14 22 H Blood Pressure 107/83 Pulse Oximetry 100 Oxygen Delivery Fraction of Inspired Oxygen 04/19/22 21:45 04/19/22 20:17 04/20/22 00:00 Temperature Pulse Rate 112 H 119 H 116 H Respiratory Rate 18 Blood Pressure 117/89 Pulse Oximetry 100 100 Oxygen Delivery Mechanical Ventilation Fraction of Inspired Oxygen 30 04/20/22 00:00 04/20/22 00:00 04/20/22 00:00
[2022-04-20] MEDS: PANTOPRAZOLE SODIUM IV 40 MG VIAL IV PUSH ×2 (11:26→20:32)
[2022-04-20] MEDS: atenoloL 25 MG TABLET FEED TUBE (11:26)
[2022-04-20 11:29] LABS: Glucose Point of Care 200 mg/dl (65-105)
--- NOTE | 2022-04-20 12:58 | SUR.OPER ---
CALLED ICU NURSE TO COME HELP POSITION AND SUCTION PATIENTS HEAD, WENT TO TURN PATIENT'S HEAD AND SUCTION MOUTH AND NOTICED A TOOTH WAS BROKE OFF. PATIENT BITING ON TUBE REMOTE SENSING RESEARCH SCIENTIST INCREASED PROPOFOL DRIP.
--- NOTE | 2022-04-20 13:53 | WPDINTPN ---
Progress Note: A&P Assessment and Plan (1) Acute respiratory failure: Code(s): J96.00 - Acute respiratory failure, unspecified whether with hypoxia or hypercapnia Status: Acute Assessment and Plan: Acute respiratory failure secondary to inability to protect her airway from CVA and also aspiration pneumonia -patient was intubated 04/18/2022 evening as she was unable to clear secretions - CT chest done post intubation showed Material in the trachea and left mainstem bronchus that may be mucous or aspiration -ABG and chest x-ray reviewed -currently on low tidal volume strategy, peep of 5 and 30% FiO2. Weaning will depend on neurological status (2) Aspiration pneumonia: Code(s): J69.0 - Pneumonitis due to inhalation of food and vomit Status: Acute Assessment and Plan: ABGs reviewed -chest x-ray this morning did not show any acute cardiopulmonary disease -04/19: Sputum cultures negative so far -04/19: Urine culture no growth -04/17: Blood culture negative x2 (3) Sinus tachycardia: Code(s): R00.0 - Tachycardia, unspecified Status: Acute Assessment and Plan: Secondary to hypovolemia, sepsis, pain Patient was given additional IV fluids, with improvement in her heart rate. Patient seems to be volume depleted 04/19 echocardiogram: Normal LV systolic function with EF of > 70%, grade 1 diastolic dysfunction RV function is reduced -tachycardia has improved after IV fluid (4) Pyelonephritis: Code(s): N12 - Tubulo-interstitial nephritis, not specified as acute or chronic Status: Acute Assessment and Plan: CT scan suggested findings of pyelonephritis Her UA only showed 4-6 WBCs She is on empiric Zosyn Urine culture as above (5) CVA (cerebral vascular accident): Code(s): I63.9 - Cerebral infarction, unspecified Status: Acute Assessment and Plan: Patient was admitted on 04/17 with slurred speech. MRI showed CVA Patient was evaluated by Neurology See below for imaging Workup for stroke is in process Blood cultures and echocardiogram is ordered to evaluate for cardioembolic source -add empiric vancomycin Hypercoagulability workup has been ordered She is on aspirin statin and anticoagulation. I will have to hold anticoagulation due to upper GI bleed Repeat head CT done this morning did not show any cerebral edema Head CT 04/19 ?Acute infarcts in the frontoparietal regions, left worse than right. Head neck CTA 04/18 Examination is severely limited by motion artifact. Within that constraint, no large vessel occlusion is detected. No definite severe carotid or vertebral artery stenosis CTA neck and chest 04/18 No etiology for the patient's symptoms. Brain MRI 04/18 IMPRESSION: 1. Acute cortical infarcts in the frontoparietal regions, left worse than right. 2. Cortical infarcts involving the medial posterior frontal lobes, left worse than right, likely chronic. (6) Diabetes mellitus, new onset: Code(s): E11.9 - Type 2 diabetes mellitus without complications Status: Acute Assessment and Plan: SSI on sliding scale insulin (7) Sepsis: Code(s): A41.9 - Sepsis, unspecified organism Status: Acute Assessment and Plan: Cultures as above Pyelonephritis and possible aspiration pneumonia On empiric Zosyn. Add empiric vancomycin until blood culture and echo results are back Adequately fluid-resuscitated Monitor lactic acid level (8) Upper GI bleed: Code(s): K92.2 - Gastrointestinal hemorrhage, unspecified Status: Acute Assessment and Plan: Patient's OG output is bloody Hold anticoagulation Serial hemoglobins have been stable Appreciate GI evaluation recommendation INR is 1.1 04/20 EGD showed esophageal ulcers without bleeding, acute gastric ulcers, gastritis, duodenitis continue IV PPI q.12 (9) Hyperthyroidism: Code(s): E05.90 - Thyrotoxicosis, unspecified without thyrotoxic crisis or
--- NOTE | 2022-04-20 14:04 | PCFNICU ---
Addendum entered by Mirta Mccoy, RD, LDN 04/20/22 14:20: Nutrition recommendation: Vital 1.2 AF @20ml/hr, advance rate by 10ml q4h to goal rate of 60 ml/hr. Original Note: ICU Rounding Note: Pt current nutrition is NPO. Nutrition recommendation: Vital 1.2 @20ml/hr, advance rate by 10ml q4h. with 30ml flushes q4h. 60ml/hr q4h 1584kcal, 99g protein, 1070 fluid provided from formula. Last recorded weight is 58.4 kg. Bowel Motility: none Labs Reviewed:Na: 136, K: 3.2, Cr: 0.5, Glu: 187 Meds Noted:tenormin, lipitor, lovenox, novolog, zofran, protonix, zosyn, Kcl, propofol (diprivan:3.79ml/hr ), vanocomycin Skin: WNL Additional Notes: Pt continue on NPO for EGD. propofol diprivian 3.79ml: 92kcal Following daily in ICU rounds. Monitor plan of care, intakes, tube feeding tolerance, weights, labs. Follow daily in rounds. Follow up Tuesdays and Fridays per policy.
--- NOTE | 2022-04-20 14:54 | SUR.OPER ---
1258 Tooth was able to be retrieved out of the patient's mouth prior to the procedure starting. Tooth given to ICU nurse by Dr. Coy.
[2022-04-20] MEDS: PROPOFOL IV EMULSION 100 ML 3.79 MG IV CONT (17:15)
[2022-04-20] MEDS: INSULIN ASPART (*BKC) 100 UNITS/ML SUB-Q ×2 (18:40→23:57)
[2022-04-20 18:41] LABS: Glucose Point of Care 202 mg/dl (65-105)
[2022-04-20 18:46] LABS: Hematocrit 39.7 % (37.0-47.0); Hemoglobin 13.1 g/dL (12.0-15.0)
[2022-04-20 20:20] LABS: Anti Cardio Antibody IgM <2.0 MPL-U/mL (<20.0); Anti Cardiolipin Antibody IgA <2.0 APL-U/mL (<20.0); Anti Cardiolipin Antibody IgG <2.0 GPL-U/mL (<20.0)
[2022-04-20] MEDS: NYSTATIN 100,000 UNITS/ML SUSP 5 ML ORAL.SUSP PO (20:32)
[2022-04-20 21:01] LABS: Vancomycin Trough 10.2 ug/mL (10.0-20.0)
[2022-04-20 23:52] LABS: Glucose Point of Care 212 mg/dl (65-105)
[2022-04-21] VITALS (22 sets, daily range): BP systolic 100–129; BP diastolic 71–92; PULSE 100–137; RESP 16–24; TEMP 36.5–37.5; O2SAT 99–100
[2022-04-21 03:48] LABS: Hematocrit 39.1 % (37.0-47.0); Hemoglobin 13.1 g/dL (12.0-15.0); Mean Corpuscular HGB Conc 33.5 g/dl (32-36); Mean Corpuscular Hemoglobin 30.3 pg (26-34); Mean Corpuscular Volume 90.3 fl (80-100); Mean Platelet Volume 10.5 fl (7.4-10.4); Platelet Count Result 258 k/mm3 (150-375); Red Blood Count 4.33 M/mm3 (4.2-5.4); Red Cell Distribution Width 12.9 % (11.5-14.5); White Blood Count 13.7 K/mm3 (4.5-10.0)
[2022-04-21 04:08] LABS: Alanine Aminotransferase 18 U/L (6-35); Albumin Level 3.6 g/dL (3.5-5.1); Alkaline Phosphatase 48 U/L (38-126); Anion Gap 16 mmol/L (8-16); Aspartate Amino Transferase 31 U/L (14-36); Bilirubin,Total 0.6 mg/dL (0.2-1.3); Blood Urea Nitrogen 9 mg/dL (7-17); Calcium 8.7 mg/dL (8.4-10.2); Carbon Dioxide 24 mmol/L (22-30); Chloride 104 mmol/L (98-107); Estimated CRCL calculation 117 ml/min; Estimated Glomerular Filt Rate > 60; Glucose 96 mg/dL (65-110); Sodium 144 mmol/L (137-145)
[2022-04-21] MEDS: KCL 20 MEQ/0.45% NS 1,000 ML 150 ML IV CONT ×3 (04:22→20:49)
[2022-04-21] MEDS: CENTRAL LINE FLUSH 10 ML IV PUSH ×3 (05:07→20:50)
[2022-04-21 05:13] LABS: Alveolar/Arterial O2 Gradient 31.8 mmHg; Base Excess ABG 1.8 mEq/l (+/-2.0); Carboxyhemoglobin 0.3 % THb (0-2.0); Fractional Inspired Oxygen 30 %; HCO3 ABG 24.3 mEq/l (22.0-26.0); Methemoglobin ABG 0.5 %THb (0-1.5); Oxygen Content ABG 23.1 %vol (16.0-22.0); Oxyhemoglobin 97.7 % THb (90.0-100.0); PCO2 ABG 32.6 mmHg (35.0-45.0); PO2 ABG 143.8 mmHg (80.0-100.0); PO2 FiO2 Ratio Arterial Blood 4.79 %; Reduced Hemoglobin 1.5 %THb (0-5.0); Total Hemoglobin 16.7 g/dL (12.0-18.0)
[2022-04-21 05:15] LABS: Arterial Blood Gas PEEP 5 cmH2O; Arterial Blood Gas Tidal Volume 350 ml; Arterial Blood Gas Vent Mode CMV; Arterial Blood Gas Ventilator rate 14 /MIN; Device VENTILATOR; Modified Allen's Test Pass; Site Drawn RIGHT RADIAL
[2022-04-21] MEDS: POTASSIUM CHLORIDE 20 MEQ PACKET (FOR LIQUID) 40 MEQ FEED TUBE ×2 (09:01→09:05)
[2022-04-21] MEDS: PANTOPRAZOLE SODIUM IV 40 MG VIAL IV PUSH ×2 (09:12→20:49)
[2022-04-21 12:03] LABS: Glucose Point of Care 207 mg/dl (65-105)
[2022-04-21 12:45] LABS: Complement Total CH50 >60 U/mL (31-60)
--- NOTE | 2022-04-21 13:14 | WPDNEUROPN ---
Subjective Date/time seen: 04/21/22 13:14 Interval history: bihemispheric stroke with even though severely limited by motion artifact the CTA is grossly negative, CT of the head has documented acute infarct in the frontoparietal region left worse than the right, clinically patient is unresponsive to verbal commands but on painful stimuli days facial grimace and subtle movements of the right upper extremity with upgoing plantar responses bilaterally. Family meeting was done the presence of to appraised the family including mother and . All the pros and cons were discussed, looking for the transfer to [facility] if anything can be offered to her, considering her younger age obviously she has more chances of coming out of the situation but obviously with significant neurological deficit, these these ideas were discussed with them Objective Data Vital Signs Vital Signs: Vital Signs - 24 hr 04/20/22 14:26 04/20/22 17:05 04/20/22 14:00 Temperature Pulse Rate 107 H 120 H 101 H Respiratory Rate Blood Pressure Pulse Oximetry 100 100 Oxygen Delivery Mechanical Ventilation Mechanical Ventilation Fraction of Inspired Oxygen 30 30 04/20/22 16:00 04/20/22 14:00 04/20/22 16:00 Temperature 36.6 C Pulse Rate 103 H 102 H 104 H Respiratory Rate 17 15 Blood Pressure 119/88 113/82 Pulse Oximetry 100 100 Oxygen Delivery Fraction of Inspired Oxygen 04/20/22 18:00 04/20/22 16:00 04/20/22 18:00 Temperature Pulse Rate 130 H 109 H Respiratory Rate 27 H Blood Pressure 117/89 Pulse Oximetry 100 Oxygen Delivery Fraction of Inspired Oxygen 30 04/20/22 16:00 04/20/22 20:00 04/20/22 20:00 Temperature 36.9 C Pulse Rate 108 H 96 Respiratory Rate 16 Blood Pressure 104/83 Pulse Oximetry 100 100 Oxygen Delivery Mechanical Ventilation Fraction of Inspired Oxygen 30 04/20/22 20:00 04/20/22 20:00 04/20/22 20:00 Temperature Pulse Rate 99 99 Respiratory Rate 16 20 Blood Pressure Pulse Oximetry 100 Oxygen Delivery Mechanical Ventilation Fraction of Inspired Oxygen 30 30 04/20/22 21:45 04/20/22 22:00 04/20/22 22:00 Temperature Pulse Rate 97 95 94 Respiratory Rate 16 Blood Pressure 114/83 Pulse Oximetry 100 100 Oxygen Delivery Mechanical Ventilation Fraction of Inspired Oxygen 30 04/20/22 23:30 04/21/22 00:00 04/21/22 00:00 Temperature Pulse Rate 102 H 100 100 Respiratory Rate 16 Blood Pressure Pulse Oximetry 100 100 Oxygen Delivery Mechanical Ventilation Mechanical Ventilation Fraction of Inspired Oxygen 30 30 04/21/22 00:00 04/21/22 00:00 04/21/22 02:00 Temperature 36.5 C Pulse Rate 100 116 H Respiratory Rate 18 Blood Pressure 100/73 Pulse Oximetry 100 Oxygen Delivery Fraction of Inspired Oxygen 30 04/21/22 02:00 04/21/22 02:44 04/21/22 04:00 Temperature Pulse Rate 116 H 124 H 110 H Respiratory Rate 16 Blood Pressure 114/82 Pulse Oximetry 100 100 Oxygen Delivery Mechanical Ventilation Fraction of Inspired Oxygen 30 04/21/22 04:00 04/21/22 04:00 04/21/22 04:00 Temperature 36.7 C Pulse Rate 110 H 110 H Respiratory Rate 16 16 Blood Pressure 116/92 H Pulse Oximetry 100 100 Oxygen Delivery Mechanical Ventilation Fraction of Inspired Oxygen 30 30 04/21/22 00:00 04/21/22 04:00 04/21/22 05:47 Temperature Pulse Rate 110 H 105 H 108 H Respiratory Rate 20 16 Blood Pressure Pulse Oximetry Oxygen Delivery Fraction of Inspired Oxygen 04/21/22 05:47 04/21/22 07:49 04/21/22 08:59 Temperature 36.9 C Pulse Rate 105 H 127 H 137 H Respiratory Rate 20 20 22 H Blood Pressure 121/89 129/90 Pulse Oximetry 100 100 Oxygen Delivery Fraction of Inspired Oxygen 04/21/22 09:13 04/21/22 10:00 04/21/22 11:43 Temperature Pulse Rate 111 H 102 H 120 H Respiratory Rate 17 Blood Pressure 114/90 Pulse Oxime
[2022-04-21] MEDS: INSULIN ASPART (*BKC) 100 UNITS/ML SUB-Q (13:20)
--- NOTE | 2022-04-21 13:20 | WPDINTPN ---
Progress Note: A&P Assessment and Plan (1) Acute respiratory failure: Code(s): J96.00 - Acute respiratory failure, unspecified whether with hypoxia or hypercapnia Status: Acute Assessment and Plan: Acute respiratory failure secondary to inability to protect her airway from CVA and also aspiration pneumonia -patient was intubated 04/18/2022 evening as she was unable to clear secretions - CT chest done post intubation showed Material in the trachea and left mainstem bronchus that may be mucous or aspiration -ABG and chest x-ray reviewed -currently on low tidal volume strategy, peep of 5 and 30% FiO2. Weaning will depend on neurological status (2) Aspiration pneumonia: Code(s): J69.0 - Pneumonitis due to inhalation of food and vomit Status: Acute Assessment and Plan: ABGs reviewed -chest x-ray this morning did not show any acute cardiopulmonary disease -04/19: Sputum cultures negative so far -04/19: Urine culture no growth -04/17: Blood culture negative x2 leukocytosis improving (3) Sinus tachycardia: Code(s): R00.0 - Tachycardia, unspecified Status: Acute Assessment and Plan: Secondary to hypovolemia, sepsis, pain Patient was given additional IV fluids, with improvement in her heart rate. Patient seems to be volume depleted 04/19 echocardiogram: Normal LV systolic function with EF of > 70%, grade 1 diastolic dysfunction RV function is reduced -tachycardia has improved after IV fluid (4) Pyelonephritis: Code(s): N12 - Tubulo-interstitial nephritis, not specified as acute or chronic Status: Acute Assessment and Plan: CT scan suggested findings of pyelonephritis Her UA only showed 4-6 WBCs She is on empiric Zosyn Urine culture as above (5) CVA (cerebral vascular accident): Code(s): I63.9 - Cerebral infarction, unspecified Status: Acute Assessment and Plan: Patient was admitted on 04/17 with slurred speech. MRI showed CVA Patient was evaluated by Neurology See below for imaging Workup for stroke is in process Blood cultures and echocardiogram is ordered to evaluate for cardioembolic source -add empiric vancomycin Hypercoagulability workup has been ordered She is on aspirin statin and anticoagulation. I will have to hold anticoagulation due to upper GI bleed Repeat head CT done this morning did not show any cerebral edema Head CT 04/19 ?Acute infarcts in the frontoparietal regions, left worse than right. Head neck CTA 04/18 Examination is severely limited by motion artifact. Within that constraint, no large vessel occlusion is detected. No definite severe carotid or vertebral artery stenosis CTA neck and chest 04/18 No etiology for the patient's symptoms. Brain MRI 04/18 IMPRESSION: 1. Acute cortical infarcts in the frontoparietal regions, left worse than right. 2. Cortical infarcts involving the medial posterior frontal lobes, left worse than right, likely chronic. 04/21: CT brain ?There are acute infarcts involving the medial frontal lobes, frontoparietal regions, medial left parietal lobe, and medial aspects of the thalami. There is no intracranial hemorrhage or abnormal mass lesion. The ventricles are normal in size. The orbits are normal. There is mild mucosal thickening in the paranasal sinuses. The mastoid air cells are normal. (6) Diabetes mellitus, new onset: Code(s): E11.9 - Type 2 diabetes mellitus without complications Status: Acute Assessment and Plan: SSI on sliding scale insulin (7) Sepsis: Code(s): A41.9 - Sepsis, unspecified organism Status: Acute Assessment and Plan: Cultures as above Pyelonephritis and possible aspiration pneumonia On empiric Zosyn. Add empiric vancomycin until blood culture and echo results are back Adequately fluid-resuscitated Monitor lactic acid level (8) Upper GI bleed: Code(s): K92.2 - Gastrointestinal hemorrhage, unspecified Status
--- NOTE | 2022-04-21 13:43 | PCFNICU ---
Addendum entered by Oumar De La Garza 04/21/22 14:09: Propofol provides 137kcal. Total kcal: 1452kcal (formula) + 137kcal (propofol)= 1589 Original Note: ICU Rounding Note: Pt current nutrition is Tube feeding Vital AF 1.2. Last recorded weight is 57.6 kg. Bowel Motility: no documented bm Labs Reviewed: K: 3, Cr: 0.5 Meds Noted:tenorimin, lipitor, dextrose, lovenox, glucagon, glucose, novolog, zofran, protonox, KLC, propofol (diprivan), vancomycin Skin: no wounds Additional Notes: Possible transfer of pt if bed available at [facility] (they have not called MD back regarding bed availability). Per MD to start tube feeding. Pt is on 15mcg of propofol. Nutrition recommendation: start pt on vital 1.2 @20ml/hr. Advance by 10ml q4h till goal rate met, 30ml flushes q4h. Goal rate 55ml/hr provides 1452kcal, 90g protein(89%) and 981ml fluid. kcals from formula and propofol will provided 1589kcal which is within range for [facility] estimated kcal. Increase feeding rate to meet calculated protein needs (101g) if propofol is titrated down. Following daily in ICU rounds. Monitor plan of care, intakes, tube feeding tolerance, weights, labs. Follow daily in rounds. Follow up Tuesdays and Fridays per policy..
[2022-04-21 14:19] LABS: Homocysteine 11.7 umol/L (<10.4)
--- NOTE | 2022-04-21 14:45 | PCNSR ---
On 04/21/22, the student, Oumar De La Garza, provided care and completed [facility] documentation on this patient. I have reviewed the student's documentation and agree with the findings.
[2022-04-21 18:36] LABS: Glucose Point of Care 162 mg/dl (65-105)
[2022-04-21 20:38] LABS: Lupus dRVVT Screen 31 sec (<=45); PTT-LA Screen 38 sec (<=40)
[2022-04-21] MEDS: ATORVASTATIN 40 MG TABLET 80 MG PO (20:49)
[2022-04-21] MEDS: MINERAL OIL/WHITE PETROLATUM OINTMENT 1 APPLIC EACH EYE (20:49)
[2022-04-21 20:59] LABS: Antithrombin III Activity 148 % normal (80-135)
[2022-04-21 23:29] LABS: Glucose Point of Care 158 mg/dl (65-105)
[2022-04-21] MEDS: PROPOFOL IV EMULSION 100 ML 7.57 MG IV CONT (23:41)
[2022-04-22] VITALS (27 sets, daily range): BP systolic 81–127; BP diastolic 50–95; PULSE 93–140; RESP 17–23; TEMP 36.3–37.6; O2SAT 97–100
[2022-04-22 04:30] LABS: Hematocrit 40.8 % (37.0-47.0); Hemoglobin 13.2 g/dL (12.0-15.0); Mean Corpuscular HGB Conc 32.4 g/dl (32-36); Mean Corpuscular Hemoglobin 29.7 pg (26-34); Mean Corpuscular Volume 91.9 fl (80-100); Mean Platelet Volume 10.5 fl (7.4-10.4); Platelet Count Result 302 k/mm3 (150-375); Red Blood Count 4.44 M/mm3 (4.2-5.4); Red Cell Distribution Width 13.3 % (11.5-14.5); White Blood Count 13.2 K/mm3 (4.5-10.0)
[2022-04-22 04:52] LABS: Alanine Aminotransferase 20 U/L (6-35); Albumin Level 3.9 g/dL (3.5-5.1); Alkaline Phosphatase 59 U/L (38-126); Anion Gap 15 mmol/L (8-16); Aspartate Amino Transferase 34 U/L (14-36); Bilirubin,Total 0.8 mg/dL (0.2-1.3); Blood Urea Nitrogen 16 mg/dL (7-17); Calcium 9.6 mg/dL (8.4-10.2); Carbon Dioxide 21 mmol/L (22-30); Chloride 106 mmol/L (98-107); Estimated CRCL calculation 75 ml/min; Estimated Glomerular Filt Rate > 60; Glucose 171 mg/dL (65-110); Sodium 142 mmol/L (137-145)
[2022-04-22] MEDS: CENTRAL LINE FLUSH 10 ML IV PUSH ×3 (05:06→20:16)
[2022-04-22 05:40] LABS: Alveolar/Arterial O2 Gradient 37.5 mmHg; Base Excess ABG 0.5 mEq/l (+/-2.0); Carboxyhemoglobin 0.3 % THb (0-2.0); Fractional Inspired Oxygen 30 %; HCO3 ABG 23.4 mEq/l (22.0-26.0); Methemoglobin ABG 0.4 %THb (0-1.5); Oxygen Content ABG 19.6 %vol (16.0-22.0); Oxygen Saturation ABG 98.9 % (95.0-100.0); Oxyhemoglobin 97.6 % THb (90.0-100.0); PCO2 ABG 32.6 mmHg (35.0-45.0); PO2 ABG 138.1 mmHg (80.0-100.0); Reduced Hemoglobin 1.7 %THb (0-5.0); Total Hemoglobin 14.1 g/dL (12.0-18.0); pH ABG 7.473 (7.350-7.450)
[2022-04-22 05:41] LABS: Arterial Blood Gas PEEP 5 cmH2O; Arterial Blood Gas Tidal Volume 350 ml; Arterial Blood Gas Vent Mode CMV; Arterial Blood Gas Ventilator rate 14 /MIN; Device VENTILATOR; Modified Allen's Test Unable to perform; Site Drawn RIGHT RADIAL
[2022-04-22] MEDS: LACTATED RINGERS 1,000 ML 999 ML IV CONT ×2 (08:29→18:30)
[2022-04-22] MEDS: MINERAL OIL/WHITE PETROLATUM OINTMENT 1 APPLIC EACH EYE ×2 (08:30→20:16)
[2022-04-22] MEDS: atenoloL 25 MG TABLET FEED TUBE (08:30)
[2022-04-22] MEDS: PANTOPRAZOLE SODIUM IV 40 MG VIAL IV PUSH ×2 (08:30→20:16)
--- NOTE | 2022-04-22 09:32 | WPDINTPN ---
Progress Note: A&P Assessment and Plan (1) Acute respiratory failure: Code(s): J96.00 - Acute respiratory failure, unspecified whether with hypoxia or hypercapnia Status: Acute Assessment and Plan: Acute respiratory failure secondary to inability to protect her airway from CVA and also aspiration pneumonia -patient was intubated 04/18/2022 evening as she was unable to clear secretions - CT chest done post intubation showed Material in the trachea and left mainstem bronchus that may be mucous or aspiration -ABG and chest x-ray reviewed -currently on low tidal volume strategy, peep of 5 and 30% FiO2. Weaning will depend on neurological status (2) Aspiration pneumonia: Code(s): J69.0 - Pneumonitis due to inhalation of food and vomit Status: Acute Assessment and Plan: ABGs reviewed -chest x-ray this morning did not show any acute cardiopulmonary disease -04/19: Sputum cultures negative so far -04/19: Urine culture no growth -04/17: Blood culture negative x2 -leukocytosis improving -continue Zosyn (04/19) (3) Sinus tachycardia: Code(s): R00.0 - Tachycardia, unspecified Status: Acute Assessment and Plan: Secondary to hypovolemia, sepsis, pain Patient was given additional IV fluids, with improvement in her heart rate. Patient seems to be volume depleted 04/19 echocardiogram: Normal LV systolic function with EF of > 70%, grade 1 diastolic dysfunction RV function is reduced -tachycardia has improved after IV fluid (4) Pyelonephritis: Code(s): N12 - Tubulo-interstitial nephritis, not specified as acute or chronic Status: Acute Assessment and Plan: CT scan suggested findings of pyelonephritis Her UA only showed 4-6 WBCs She is on empiric Zosyn Urine culture as above (5) CVA (cerebral vascular accident): Code(s): I63.9 - Cerebral infarction, unspecified Status: Acute Assessment and Plan: Patient was admitted on 04/17 with slurred speech. MRI showed CVA See below for imaging Workup for stroke is in process Hypercoagulability workup has been ordered Aspirin and Lovenox currently on hold as patient had upper GI bleed Head CT 04/19 ?Acute infarcts in the frontoparietal regions, left worse than right. Head neck CTA 04/18 Examination is severely limited by motion artifact. Within that constraint, no large vessel occlusion is detected. No definite severe carotid or vertebral artery stenosis CTA neck and chest 04/18 No etiology for the patient's symptoms. Brain MRI 04/18 IMPRESSION: 1. Acute cortical infarcts in the frontoparietal regions, left worse than right. 2. Cortical infarcts involving the medial posterior frontal lobes, left worse than right, likely chronic. 04/21: CT brain ?There are acute infarcts involving the medial frontal lobes, frontoparietal regions, medial left parietal lobe, and medial aspects of the thalami. There is no intracranial hemorrhage or abnormal mass lesion. The ventricles are normal in size. The orbits are normal. There is mild mucosal thickening in the paranasal sinuses. The mastoid air cells are normal. IMPRESSION: 1. Acute infarcts involving the frontal and parietal lobes and thalami. The distribution of findings and temporal progression suggest anoxic brain injury (6) Diabetes mellitus, new onset: Code(s): E11.9 - Type 2 diabetes mellitus without complications Status: Acute Assessment and Plan: SSI on sliding scale insulin (7) Sepsis: Code(s): A41.9 - Sepsis, unspecified organism Status: Acute Assessment and Plan: Cultures as above Pyelonephritis and possible aspiration pneumonia On empiric Zosyn. Add empiric vancomycin Adequately fluid-resuscitated Monitor lactic acid level Urine cultures growing Enterococcus species 04/19/2022 echocardiogram showed EF of 70%, no LV wall thickness, grade 1 diastolic dysfunction, RV systolic function is reduced (8) Upper GI
[2022-04-22] MEDS: dexmedeTOMIDine 400 MCG/100 ML 400 MCG/100 ML BAG IV CONT (11:30)
--- NOTE | 2022-04-22 12:10 | PCFNICU ---
ICU Rounding Note: Pt current nutrition is tube feeding vital AF 1.2. Last recorded weight is 57.3 kg. Bowel Motility: no documented BM in I/O or [place] gastrointestinal care Labs Reviewed:Glu: 171, CO2: 21 Meds Noted: tenormin, lipitor, precedex. dextrose, lovenox, glucagon, glutose, novolog, keppra, reglan, lubrifresh, nystatin, zofran, protonix, zosyn, Skin: WNL Additional Notes: Pt fairly tolerating tube with gastric residual of 120ml, per nurse. Pt was taken off propofol, night nurse says pt was acting up . she is no on precedex. Per MD griffith to increase pt feeding to 60ml/hr. Nutrition recommendation: vital AF 1.2 @20ml and advance by 10ml q4h. goal rate 60ml/hr providing 1584kcal, 90g protein, 1070ml fluid, with 30ml flushes q4h. Following daily in ICU rounds. Monitor plan of care, intakes, tube feeding tolerance, weights, labs. Follow daily in rounds. Follow up Tuesdays and Fridays per policy..
--- NOTE | 2022-04-22 12:47 | PCNSR ---
On 04/22/22, the student,Oumar De La Garza, provided care and completed [facility] documentation on this patient. I have reviewed the student's documentation and agree with the findings.
[2022-04-22] MEDS: METOCLOPRAMIDE HCL INJ 10 MG/2 ML VIAL IV PUSH ×3 (12:52→23:48)
[2022-04-22] MEDS: levETIRAcetam 500MG/NACL 100ML 500 MG/100 ML BAG 400 MG IVPB ×2 (12:52→20:15)
[2022-04-22 13:12] LABS: Glucose Point of Care 180 mg/dl (65-105)
[2022-04-22 18:25] LABS: Glucose Point of Care 218 mg/dl (65-105)
[2022-04-22] MEDS: PROPOFOL IV EMULSION 100 ML 3.44 MG IV CONT (18:30)
[2022-04-22 18:57] LABS: SS-A <1.0; SS-B <1.0
[2022-04-22] MEDS: INSULIN ASPART (*BKC) 100 UNITS/ML SUB-Q ×2 (19:30→23:49)
[2022-04-22] MEDS: NOREPINEPHRINE 8 MG/D5W 250 ML 8 MG/250 ML BAG 9.38 MG IV CONT (19:56)
[2022-04-22] MEDS: ATORVASTATIN 40 MG TABLET 80 MG PO (20:16)
[2022-04-22 23:48] LABS: Glucose Point of Care 204 mg/dl (65-105)
[2022-04-23] VITALS (25 sets, daily range): BP systolic 89–138; BP diastolic 66–92; PULSE 109–138; RESP 14–28; TEMP 36.8–38.3; O2SAT 96–100
[2022-04-23 05:06] LABS: Alveolar/Arterial O2 Gradient 20.7 mmHg; Base Excess ABG 5.8 mEq/l (+/-2.0); Carboxyhemoglobin 0.4 % THb (0-2.0); Fractional Inspired Oxygen 21 %; HCO3 ABG 29.2 mEq/l (22.0-26.0); Methemoglobin ABG 0.3 %THb (0-1.5); Oxygen Content ABG 20.1 %vol (16.0-22.0); Oxyhemoglobin 95.6 % THb (90.0-100.0); PO2 ABG 83.5 mmHg (80.0-100.0); PO2 FiO2 Ratio Arterial Blood 3.98 %; Reduced Hemoglobin 3.7 %THb (0-5.0); Total Hemoglobin 14.9 g/dL (12.0-18.0)
[2022-04-23 05:07] LABS: Site Drawn RIGHT RADIAL; pH ABG 7.503 (7.350-7.450)
[2022-04-23 05:08] LABS: Arterial Blood Gas PEEP 5 cmH2O; Arterial Blood Gas Tidal Volume 350 ml; Arterial Blood Gas Vent Mode CMV; Arterial Blood Gas Ventilator rate 14 /MIN; Device VENTILATOR; Modified Allen's Test Pass
[2022-04-23] MEDS: METOCLOPRAMIDE HCL INJ 10 MG/2 ML VIAL IV PUSH ×3 (05:12→17:29)
[2022-04-23] MEDS: CENTRAL LINE FLUSH 10 ML IV PUSH ×3 (05:12→20:29)
[2022-04-23] MEDS: PANTOPRAZOLE SODIUM IV 40 MG VIAL IV PUSH ×2 (08:56→20:29)
[2022-04-23] MEDS: MINERAL OIL/WHITE PETROLATUM OINTMENT 1 APPLIC EACH EYE ×2 (08:56→20:29)
[2022-04-23] MEDS: levETIRAcetam 500MG/NACL 100ML 500 MG/100 ML BAG 400 MG IVPB ×2 (08:56→20:33)
[2022-04-23 09:19] LABS: Hematocrit 39.5 % (37.0-47.0); Hemoglobin 12.9 g/dL (12.0-15.0); Mean Corpuscular HGB Conc 32.7 g/dl (32-36); Mean Corpuscular Hemoglobin 29.6 pg (26-34); Mean Corpuscular Volume 90.6 fl (80-100); Mean Platelet Volume 10.3 fl (7.4-10.4); Platelet Count Result 333 k/mm3 (150-375); Red Blood Count 4.36 M/mm3 (4.2-5.4); Red Cell Distribution Width 13.1 % (11.5-14.5); White Blood Count 14.1 K/mm3 (4.5-10.0)
[2022-04-23 09:28] LABS: Alanine Aminotransferase 23 U/L (6-35); Albumin Level 4.2 g/dL (3.5-5.1); Alkaline Phosphatase 84 U/L (38-126); Anion Gap 19 mmol/L (8-16); Aspartate Amino Transferase 44 U/L (14-36); Bilirubin,Total 1.4 mg/dL (0.2-1.3); Blood Urea Nitrogen 21 mg/dL (7-17); Calcium 9.8 mg/dL (8.4-10.2); Carbon Dioxide 27 mmol/L (22-30); Chloride 104 mmol/L (98-107); Estimated CRCL calculation 61 ml/min; Estimated Glomerular Filt Rate > 60; Glucose 168 mg/dL (65-110); Magnesium 1.9 mg/dL (1.6-2.3); Potassium 3.9 mmol/L (3.4-5.0); Sodium 150 mmol/L (137-145)
[2022-04-23 10:07] LABS: Vancomycin Trough 7.1 ug/mL (10.0-20.0)
[2022-04-23 12:20] LABS: Glucose Point of Care 166 mg/dl (65-105)
--- NOTE | 2022-04-23 12:27 | P.PNINT_ITS ---
Progress Note: A&P Assessment and Plan (1) Acute respiratory failure: Code(s): J96.00 - Acute respiratory failure, unspecified whether with hypoxia or hypercapnia Status: Acute Assessment and Plan: Acute respiratory failure secondary to inability to protect her airway from CVA and also aspiration pneumonia -patient was intubated 04/18/2022 evening as she was unable to clear secretions - CT chest done post intubation showed Material in the trachea and left mainstem bronchus that may be mucous or aspiration -ABG and chest x-ray reviewed -currently on low tidal volume strategy, peep of 5 and 30% FiO2. Weaning will depend on neurological status (2) Aspiration pneumonia: Code(s): J69.0 - Pneumonitis due to inhalation of food and vomit Status: Acute Assessment and Plan: ABGs reviewed -chest x-ray this morning did not show any acute cardiopulmonary disease -04/19: Sputum cultures negative so far -04/19: Urine culture no growth -04/17: Blood culture negative x2 -leukocytosis improving -continue Zosyn (04/19) (3) Sinus tachycardia: Code(s): R00.0 - Tachycardia, unspecified Status: Acute Assessment and Plan: Secondary to hypovolemia, sepsis, pain Patient was given additional IV fluids, with improvement in her heart rate. Patient seems to be volume depleted 04/19 echocardiogram: Normal LV systolic function with EF of > 70%, grade 1 diastolic dysfunction RV function is reduced -tachycardia has improved after IV fluid (4) Pyelonephritis: Code(s): N12 - Tubulo-interstitial nephritis, not specified as acute or chronic Status: Acute Assessment and Plan: CT scan suggested findings of pyelonephritis Her UA only showed 4-6 WBCs She is on empiric Zosyn Urine culture as above (5) CVA (cerebral vascular accident): Code(s): I63.9 - Cerebral infarction, unspecified Status: Acute Assessment and Plan: Patient was admitted on 04/17 with slurred speech. MRI showed CVA See below for imaging Workup for stroke is in process Hypercoagulability workup has been ordered Aspirin and Lovenox currently on hold as patient had upper GI bleed Head CT 04/19 ?Acute infarcts in the frontoparietal regions, left worse than right. Head neck CTA 04/18 Examination is severely limited by motion artifact. Within that constraint, no large vessel occlusion is detected. No definite severe carotid or vertebral artery stenosis CTA neck and chest 04/18 No etiology for the patient's symptoms. Brain MRI 04/18 IMPRESSION: 1. Acute cortical infarcts in the frontoparietal regions, left worse than right. 2. Cortical infarcts involving the medial posterior frontal lobes, left worse than right, likely chronic. 04/21: CT brain ?There are acute infarcts involving the medial frontal lobes, frontoparietal regions, medial left parietal lobe, and medial aspects of the thalami. There is no intracranial hemorrhage or abnormal mass lesion. The ventricles are normal in size. The orbits are normal. There is mild mucosal thickening in the paranasal sinuses. The mastoid air cells are normal. IMPRESSION: 1. Acute infarcts involving the frontal and parietal lobes and thalami. The distribution of findings and temporal progression suggest anoxic brain injury (6) Diabetes mellitus, new onset: Code(s): E11.9 - Type 2 diabetes mellitus without complications Status: Acute Assessment and Plan: SSI on sliding scale insulin (7) Sepsis: Code(s): A41.9 - Sepsis, unspecified organism Status: Acute
--- NOTE | 2022-04-23 12:33 | PCNFU ---
Nutrition Follow-Up Complete: Inadequate energy intake related to NPO status, mechanical ventilation, increased protein needs, as evidenced by need for full tube feeding. Adequate intake at least 75% needs Goal: goal met. Pt receiving Vital AF 1.2 @55ml/hr, provides 1452kcal, 90g protein, 981ml fluid and 30ml flushes Pt current nutrition is Tube feeding Vital AF 1.2. Last recorded weight is 57.1 kg. Bowel Motility: no documented BM in [place] gastrointestinal and I/O Labs Reviewed:Na: 150, BUN: 21, Glu: 168 Meds Noted: tenormin, lipitor, dextrose, lovenox, glucagon, glutose, novolog, keppra, reglan, lubifresh, levophed, nystatin, zofran, protonix, transderm Skin: skin intact Additional Notes: Pt not tolerating tube feeding, currently rate at 10ml/hr of Vital AF 1.2. Advance pt tube feeding rate 10ml as tolerated. Tube feeding order vital AF 1.2 @55ml/hr, provides 1452kcal(1575-1608kcal), 90g protein (101g), and 981ml fluid with 30ml flushes. Meets 92% kcal and 89% protein needs. Teacher Dancing and family are discussing pt care plans. Monitor plan of care, intakes, tube feeding tolerance, weights, labs. Follow daily in rounds. Follow up Tuesdays and Fridays per policy.
--- NOTE | 2022-04-23 13:27 | PCNSR ---
On 04/23/22, the student,Oumar De La Garza, provided care and completed [facility] documentation on this patient. I have reviewed the student's documentation and agree with the findings.
[2022-04-23] MEDS: SCOPOLAMINE 1.5 MG PATCH TRANSDERM (17:25)
[2022-04-23 18:18] LABS: Glucose Point of Care 166 mg/dl (65-105)
[2022-04-23] MEDS: ATORVASTATIN 40 MG TABLET 80 MG PO (20:29)
[2022-04-23 23:38] LABS: Glucose Point of Care 164 mg/dl (65-105)
[2022-04-24] VITALS (22 sets, daily range): BP systolic 93–123; BP diastolic 68–87; PULSE 99–128; RESP 14–23; TEMP 36.7–37.8; O2SAT 96–100
[2022-04-24] MEDS: METOCLOPRAMIDE HCL INJ 10 MG/2 ML VIAL IV PUSH ×4 (00:57→17:19)
[2022-04-24 04:55] LABS: Alveolar/Arterial O2 Gradient 45.5 mmHg; Base Excess ABG 5.3 mEq/l (+/-2.0); Carboxyhemoglobin 0.5 % THb (0-2.0); Fractional Inspired Oxygen 21 %; HCO3 ABG 28.1 mEq/l (22.0-26.0); Methemoglobin ABG 0.5 %THb (0-1.5); Oxygen Content ABG 20.8 %vol (16.0-22.0); Oxygen Saturation ABG 93.9 % (95.0-100.0); Oxyhemoglobin 91.4 % THb (90.0-100.0); PCO2 ABG 35.4 mmHg (35.0-45.0); PO2 ABG 61.8 mmHg (80.0-100.0); PO2 FiO2 Ratio Arterial Blood 2.94 %; Reduced Hemoglobin 7.6 %THb (0-5.0); Total Hemoglobin 16.2 g/dL (12.0-18.0)
[2022-04-24 04:59] LABS: Device VENTILATOR; Modified Allen's Test Pass; Site Drawn RIGHT RADIAL; pH ABG 7.517 (7.350-7.450)
[2022-04-24 05:00] LABS: Arterial Blood Gas PEEP 5 cmH2O; Arterial Blood Gas Tidal Volume 350 ml; Arterial Blood Gas Vent Mode CMV; Arterial Blood Gas Ventilator rate 14 /MIN
[2022-04-24] MEDS: CENTRAL LINE FLUSH 10 ML IV PUSH ×3 (06:06→20:48)
[2022-04-24 06:31] LABS: Glucose Point of Care 165 mg/dl (65-105)
[2022-04-24 06:47] LABS: Basophils Absolute Auto 0.1 K/mm3 (0.0-0.1); Basophils Percent Auto 0.4 % (0.2-1.2); Eosinophils Absolute Auto 0.2 K/mm3 (0-0.3); Eosinophils Percent Auto 0.9 % (0-4.4); Hematocrit 41.1 % (37.0-47.0); Hemoglobin 12.9 g/dL (12.0-15.0); Immature Granulocyte Absolute 0.12 K/mm3 (0.00-0.031); Immature Granulocyte Percent A 0.7 % (0-0.5); Lymphocytes Percent Auto 15.7 % (18.3-44.2); Mean Corpuscular HGB Conc 31.4 g/dl (32-36); Mean Corpuscular Volume 95.6 fl (80-100); Mean Platelet Volume 10.4 fl (7.4-10.4); Monocytes Absolute Auto 1.3 K/mm3 (0.1-0.6); Neutrophils Absolute Auto 12.3 K/mm3 (1.3-6.7); Neutrophils Percent Auto 74.3 % (45.5-73.1); Platelet Count Result 303 k/mm3 (150-375); Red Cell Distribution Width 13.3 % (11.5-14.5); White Blood Count 16.5 K/mm3 (4.5-10.0)
[2022-04-24 06:51] LABS: Alanine Aminotransferase 24 U/L (6-35); Albumin Level 4.2 g/dL (3.5-5.1); Alkaline Phosphatase 80 U/L (38-126); Anion Gap 25 mmol/L (8-16); Aspartate Amino Transferase 38 U/L (14-36); Bilirubin,Total 1.6 mg/dL (0.2-1.3); Blood Urea Nitrogen 34 mg/dL (7-17); Calcium 9.8 mg/dL (8.4-10.2); Carbon Dioxide 27 mmol/L (22-30); Chloride 101 mmol/L (98-107); Estimated CRCL calculation 48 ml/min; Estimated Glomerular Filt Rate 50; Glucose 184 mg/dL (65-110); Magnesium 2.2 mg/dL (1.6-2.3); Phosphorus 4.6 mg/dL (2.5-4.5); Sodium 153 mmol/L (137-145)
[2022-04-24] MEDS: POTASSIUM CHLORIDE 20 MEQ PACKET (FOR LIQUID) 80 MEQ FEED TUBE (08:37)
[2022-04-24] MEDS: SODIUM CHLORIDE 0.45% 1,000 ML 100 ML IV CONT ×2 (08:37→19:08)
[2022-04-24] MEDS: levETIRAcetam 500MG/NACL 100ML 500 MG/100 ML BAG 400 MG IVPB ×2 (08:43→20:48)
[2022-04-24] MEDS: MINERAL OIL/WHITE PETROLATUM OINTMENT 1 APPLIC EACH EYE ×2 (08:44→20:47)
[2022-04-24] MEDS: PANTOPRAZOLE SODIUM IV 40 MG VIAL IV PUSH ×2 (08:44→20:47)
--- NOTE | 2022-04-24 10:04 | PC.NURSE ---
Spoke with Keira with [facility] transplant at 1004. NO change in patient condition. To continue communication regarding patient care.
--- NOTE | 2022-04-24 11:38 | WPDINTPN ---
Progress Note: A&P Assessment and Plan (1) Acute respiratory failure: Code(s): J96.00 - Acute respiratory failure, unspecified whether with hypoxia or hypercapnia Status: Acute Assessment and Plan: Acute respiratory failure secondary to inability to protect her airway from CVA and also aspiration pneumonia -patient was intubated 04/18/2022 evening as she was unable to clear secretions - CT chest done post intubation showed Material in the trachea and left mainstem bronchus that may be mucous or aspiration -ABG and chest x-ray reviewed -currently on low tidal volume strategy, peep of 5 and 21% FiO2. Weaning will depend on neurological status (2) Aspiration pneumonia: Code(s): J69.0 - Pneumonitis due to inhalation of food and vomit Status: Acute Assessment and Plan: ABGs reviewed -chest x-ray this morning did not show any acute cardiopulmonary disease -04/19: Sputum cultures negative so far -04/19: Urine culture no growth -04/17: Blood culture negative x2 -leukocytosis improving -continue Zosyn (04/19) for total of 7 days (3) Sinus tachycardia: Code(s): R00.0 - Tachycardia, unspecified Status: Acute Assessment and Plan: Secondary to hypovolemia, sepsis, pain Patient was given additional IV fluids, with improvement in her heart rate. Patient seems to be volume depleted 04/19 echocardiogram: Normal LV systolic function with EF of > 70%, grade 1 diastolic dysfunction RV function is reduced -tachycardia has improved after IV fluid (4) Pyelonephritis: Code(s): N12 - Tubulo-interstitial nephritis, not specified as acute or chronic Status: Acute Assessment and Plan: CT scan suggested findings of pyelonephritis Her UA only showed 4-6 WBCs She is on empiric Zosyn Urine culture as above (5) CVA (cerebral vascular accident): Code(s): I63.9 - Cerebral infarction, unspecified Status: Acute Assessment and Plan: Patient was admitted on 04/17 with slurred speech. MRI showed CVA See below for imaging Workup for stroke is in process Hypercoagulability workup has been ordered Aspirin and Lovenox currently on hold as patient had upper GI bleed Head CT 04/19 ?Acute infarcts in the frontoparietal regions, left worse than right. Head neck CTA 04/18 Examination is severely limited by motion artifact. Within that constraint, no large vessel occlusion is detected. No definite severe carotid or vertebral artery stenosis CTA neck and chest 04/18 No etiology for the patient's symptoms. Brain MRI 04/18 IMPRESSION: 1. Acute cortical infarcts in the frontoparietal regions, left worse than right. 2. Cortical infarcts involving the medial posterior frontal lobes, left worse than right, likely chronic. 04/21: CT brain ?There are acute infarcts involving the medial frontal lobes, frontoparietal regions, medial left parietal lobe, and medial aspects of the thalami. There is no intracranial hemorrhage or abnormal mass lesion. The ventricles are normal in size. The orbits are normal. There is mild mucosal thickening in the paranasal sinuses. The mastoid air cells are normal. IMPRESSION: 1. Acute infarcts involving the frontal and parietal lobes and thalami. The distribution of findings and temporal progression suggest anoxic brain injury (6) Diabetes mellitus, new onset: Code(s): E11.9 - Type 2 diabetes mellitus without complications Status: Acute Assessment and Plan: SSI on sliding scale insulin (7) Sepsis: Code(s): A41.9 - Sepsis, unspecified organism Status: Acute Assessment and Plan: Cultures as above Pyelonephritis and possible aspiration pneumonia On empiric Zosyn. Add empiric vancomycin Adequately fluid-resuscitated Monitor lactic acid level 04/24; Will give additional IV fluid bolus today Urine cultures growing Enterococcus species 04/19/2022 echocardiogram showed EF of 70%, no LV wall thickness, grad
[2022-04-24 12:02] LABS: Glucose Point of Care 156 mg/dl (65-105)
[2022-04-24] MEDS: LACTATED RINGERS 1,000 ML 999 ML IV CONT (12:21)
[2022-04-24 14:59] LABS: Anion Gap 15 mmol/L (8-16); Blood Urea Nitrogen 29 mg/dL (7-17); Calcium 8.6 mg/dL (8.4-10.2); Carbon Dioxide 27 mmol/L (22-30); Chloride 103 mmol/L (98-107); Estimated CRCL calculation 63 ml/min; Estimated Glomerular Filt Rate > 60; Glucose 141 mg/dL (65-110); Magnesium 1.9 mg/dL (1.6-2.3); Potassium 2.9 mmol/L (3.4-5.0); Sodium 145 mmol/L (137-145)
[2022-04-24] MEDS: KCL 40 MEQ/WATER 100 ML 100 ML 25 ML IVPB ×2 (15:31→19:08)
[2022-04-24] MEDS: MAGNESIUM SULF 2 GM/WATER 50ML 2 GM/50 ML BAG IVPB (15:45)
[2022-04-24 18:14] LABS: Glucose Point of Care 146 mg/dl (65-105)
[2022-04-24] MEDS: ATORVASTATIN 40 MG TABLET 80 MG PO (20:47)
[2022-04-25] VITALS (15 sets, daily range): BP systolic 94–124; BP diastolic 62–74; PULSE 95–110; RESP 12–21; TEMP 36.6–37.4; O2SAT 92–100
[2022-04-25] MEDS: METOCLOPRAMIDE HCL INJ 10 MG/2 ML VIAL IV PUSH ×2 (00:40→05:02)
[2022-04-25 01:06] LABS: Glucose Point of Care 141 mg/dl (65-105)
--- NOTE | 2022-04-25 01:10 | PC.NURSE ---
Daylight Savings Time For Daylight Savings Time Ending in the Fall - Clocks are moved back. For Daylight Savings Time Beginning in the Spring - Clocks are moved ahead. For [facility], the time of change occurs at 0200 hrs. Time is taken from the field observer. This entry on the patient's chart recognizes the change in time reflected during documentation. Example: 2 entries for vital signs may be charted for 0200 hrs.
[2022-04-25 04:42] LABS: Hematocrit 37.1 % (37.0-47.0); Hemoglobin 11.5 g/dL (12.0-15.0); Mean Corpuscular Volume 96.9 fl (80-100); Mean Platelet Volume 10.2 fl (7.4-10.4); Platelet Count Result 278 k/mm3 (150-375); Red Blood Count 3.83 M/mm3 (4.2-5.4); Red Cell Distribution Width 13.3 % (11.5-14.5); White Blood Count 16.3 K/mm3 (4.5-10.0)
[2022-04-25 04:51] LABS: Alanine Aminotransferase 24 U/L (6-35); Albumin Level 3.6 g/dL (3.5-5.1); Alkaline Phosphatase 69 U/L (38-126); Anion Gap 18 mmol/L (8-16); Aspartate Amino Transferase 47 U/L (14-36); Bilirubin,Total 1.5 mg/dL (0.2-1.3); Blood Urea Nitrogen 21 mg/dL (7-17); Calcium 9.1 mg/dL (8.4-10.2); Carbon Dioxide 22 mmol/L (22-30); Chloride 110 mmol/L (98-107); Estimated CRCL calculation 70 ml/min; Estimated Glomerular Filt Rate > 60; Glucose 138 mg/dL (65-110); Magnesium 2.5 mg/dL (1.6-2.3); Potassium 5.3 mmol/L (3.4-5.0); Sodium 150 mmol/L (137-145)
[2022-04-25] MEDS: CENTRAL LINE FLUSH 10 ML IV PUSH (05:02)
[2022-04-25 05:37] LABS: Alveolar/Arterial O2 Gradient 18.2 mmHg; Base Excess ABG 3.8 mEq/l (+/-2.0); Carboxyhemoglobin 0.3 % THb (0-2.0); Fractional Inspired Oxygen 21 %; Methemoglobin ABG 0.6 %THb (0-1.5); Oxygen Saturation ABG 97.8 % (95.0-100.0); Oxyhemoglobin 96.2 % THb (90.0-100.0); PCO2 ABG 32.8 mmHg (35.0-45.0); PO2 ABG 92.3 mmHg (80.0-100.0); Reduced Hemoglobin 2.9 %THb (0-5.0)
[2022-04-25 05:46] LABS: Arterial Blood Gas PEEP 5 cmH2O; Arterial Blood Gas Tidal Volume 350 ml; Arterial Blood Gas Vent Mode CMV; Arterial Blood Gas Ventilator rate 14 /MIN; Device VENTILATOR; Modified Allen's Test Pass; Site Drawn RIGHT RADIAL; pH ABG 7.517 (7.350-7.450)
[2022-04-25] MEDS: SODIUM CHLORIDE 0.45% 1,000 ML 100 ML IV CONT (08:01)
[2022-04-25] MEDS: SODIUM ZIRCONIUM CYCLOSILICATE 10 GM POWD.PACK PO (08:02)
[2022-04-25] MEDS: MINERAL OIL/WHITE PETROLATUM OINTMENT 1 APPLIC EACH EYE (08:02)
[2022-04-25] MEDS: levETIRAcetam 500MG/NACL 100ML 500 MG/100 ML BAG 400 MG IVPB (08:02)
[2022-04-25] MEDS: PANTOPRAZOLE SODIUM IV 40 MG VIAL IV PUSH (08:02)
--- NOTE | 2022-04-25 11:16 | P.PNINT_ITS ---
Progress Note: A&P Assessment and Plan (1) Acute respiratory failure: Code(s): J96.00 - Acute respiratory failure, unspecified whether with hypoxia or hypercapnia Status: Acute Assessment and Plan: Acute respiratory failure secondary to inability to protect her airway from CVA and also aspiration pneumonia -patient was intubated 04/18/2022 evening as she was unable to clear secretions - CT chest done post intubation showed Material in the trachea and left mainstem bronchus that may be mucous or aspiration -ABG and chest x-ray reviewed -currently on low tidal volume strategy, peep of 5 and 21% FiO2. Weaning will depend on neurological status (2) Aspiration pneumonia: Code(s): J69.0 - Pneumonitis due to inhalation of food and vomit Status: Acute Assessment and Plan: ABGs reviewed -chest x-ray this morning did not show any acute cardiopulmonary disease -04/19: Sputum cultures negative so far -04/19: Urine culture no growth -04/17: Blood culture negative x2 -leukocytosis improving -continue Zosyn (04/19) for total of 7 days (3) Sinus tachycardia: Code(s): R00.0 - Tachycardia, unspecified Status: Acute Assessment and Plan: Secondary to hypovolemia, sepsis, pain Patient was given additional IV fluids, with improvement in her heart rate. Patient seems to be volume depleted 04/19 echocardiogram: Normal LV systolic function with EF of > 70%, grade 1 diastolic dysfunction RV function is reduced -tachycardia has improved after IV fluid (4) Pyelonephritis: Code(s): N12 - Tubulo-interstitial nephritis, not specified as acute or chronic Status: Acute Assessment and Plan: CT scan suggested findings of pyelonephritis Her UA only showed 4-6 WBCs She is on empiric Zosyn Urine culture as above (5) CVA (cerebral vascular accident): Code(s): I63.9 - Cerebral infarction, unspecified Status: Acute Assessment and Plan: Patient was admitted on 04/17 with slurred speech. MRI showed CVA See below for imaging Workup for stroke is in process Hypercoagulability workup has been ordered Aspirin and Lovenox currently on hold as patient had upper GI bleed Head CT 04/19 ?Acute infarcts in the frontoparietal regions, left worse than right. Head neck CTA 04/18 Examination is severely limited by motion artifact. Within that constraint, no large vessel occlusion is detected. No definite severe carotid or vertebral artery stenosis CTA neck and chest 04/18 No etiology for the patient's symptoms. Brain MRI 04/18 IMPRESSION: 1. Acute cortical infarcts in the frontoparietal regions, left worse than right. 2. Cortical infarcts involving the medial posterior frontal lobes, left worse than right, likely chronic. 04/21: CT brain ?There are acute infarcts involving the medial frontal lobes, frontoparietal regions, medial left parietal lobe, and medial aspects of the thalami. There is no intracranial hemorrhage or abnormal mass lesion. The ventricles are normal in size. The orbits are normal. There is mild mucosal thickening in the paranasal sinuses. The mastoid air cells are normal. IMPRESSION: 1. Acute infarcts involving the frontal and parietal lobes and thalami. The d istribution of findings and temporal progression suggest anoxic brain injury (6) Diabetes mellitus, new onset: Code(s): E11.9 - Type 2 diabetes mellitus without complications Status: Acute Assessment and Plan: SSI on sliding scale insulin (7) Sepsis: Code(s): A41.9 - Sepsis, unspecified organism
--- NOTE | 2022-04-25 11:38 | PM.IMPN ---
Progress Note: A&P Assessment and Plan (1) Acute respiratory failure: Code(s): J96.00 - Acute respiratory failure, unspecified whether with hypoxia or hypercapnia Status: Acute Assessment and Plan: Acute respiratory failure secondary to inability to protect her airway from CVA and also aspiration pneumonia -patient was intubated 04/18/2022 evening as she was unable to clear secretions - CT chest done post intubation showed Material in the trachea and left mainstem bronchus that may be mucous or aspiration -ABG and chest x-ray reviewed -currently on low tidal volume strategy, peep of 5 and 21% FiO2. Weaning will depend on neurological status (2) Aspiration pneumonia: Code(s): J69.0 - Pneumonitis due to inhalation of food and vomit Status: Acute Assessment and Plan: continue antibiotics (3) Sinus tachycardia: Code(s): R00.0 - Tachycardia, unspecified Status: Acute Assessment and Plan: Secondary to hypovolemia, sepsis, pain (4) Pyelonephritis: Code(s): N12 - Tubulo-interstitial nephritis, not specified as acute or chronic Status: Acute Assessment and Plan: CT scan suggested findings of pyelonephritis Her UA only showed 4-6 WBCs She is on empiric Zosyn Urine culture as above (5) CVA (cerebral vascular accident): Code(s): I63.9 - Cerebral infarction, unspecified Status: Acute Assessment and Plan: 1. Acute infarcts involving the frontal and parietal lobes and thalami. The distribution of findings and temporal progression suggest anoxic brain injury (6) Diabetes mellitus, new onset: Code(s): E11.9 - Type 2 diabetes mellitus without complications Status: Acute Assessment and Plan: SSI on sliding scale insulin (7) Sepsis: Code(s): A41.9 - Sepsis, unspecified organism Status: Acute Assessment and Plan: Pyelonephritis and possible aspiration pneumonia continue antibiotics (8) Upper GI bleed: Code(s): K92.2 - Gastrointestinal hemorrhage, unspecified Status: Acute Assessment and Plan: monitor (9) Hyperthyroidism: Code(s): E05.90 - Thyrotoxicosis, unspecified without thyrotoxic crisis or storm Status: Acute Assessment and Plan: Her TSH was very low on presentation, free T4 was mildly elevated, total T3 was low and free T3 is normal Continue atenolol (10) Electrolyte abnormality: Code(s): E87.8 - Other disorders of electrolyte and fluid balance, not elsewhere classified Status: Acute Assessment and Plan: Hyernatremia, likely related to SIADH, excessive urine -half-normal saline at 100 mL/hour. Subjective Date/time seen: 04/25/22 11:38 intubated Exam Narrative: General: Pt is sedated, intubated and on mechanical ventilation Lungs/Chest: Trachea central Coarse BS B/L, No crackles or wheezing. Cardiac: RRR. Normal S1 S2. No murmurs Circulation: Pedal pulses are intact and symmetrical. Abdomen: Decreased bowel sounds. Obese. Soft. NT. ND. Extremities: No clubbing, cyanosis or edema. Warm : [place] in place Neurologic: Patient is sedated and intubated, pupils equal and reactive, positive corneal, weak cough cough and gag reflex. Patient withdraws to pain on all extremities, does not open her eyes to name or verbal stimulus or follow simple commands Objective Data Vital Signs Vital Signs: Vital Signs - 24 hr 04/24/22 14:03 04/24/22 14:00 04/24/22 14:00 Temperature 98.1 F Pulse Rate 118 H 102 H 112 H Respiratory Rate 14 Blood Pressure 110/79 Pulse Oximetry 96 100 Oxygen Delivery Mechanical Ventilation Fraction of Inspired Oxygen 04/24/22 16:47 04/24/22 16:00 04/24/22 16:00 Temperature 98.5 F Pulse Rate 105 H 99 Respiratory Rate 14 Blood Pressure 123/84 Pulse Oximetry 100 100 Oxygen Delivery Mechanical Ventilation Fraction of Inspired Oxygen 21 04/24/22 16:00 04/24/22 1
[2022-04-25] MEDS: MORPHINE SULFATE INJ (*CRX) 10 MG/ML AMP 5 MG IV PUSH (12:00)
[2022-04-25] MEDS: LORazepam INJ (*CRX) 2 MG/ML VIAL IV PUSH ×2 (12:01→16:49)
[2022-04-25] MEDS: MORPHINE SULFATE (*CRX) 2 MG/ML INJ IV PUSH ×2 (14:14→16:49)
[2022-04-25 18:16] LABS: Factor V (Leiden) Mutation NEGATIVE
--- NOTE | 2022-04-25 18:45 | PC.NURSE ---
Spoke with patients mother Lakshmi. Mother would like to be updated with any change in patient condition, as well at patients oldest son Adrian at [phone].
--- NOTE | 2022-04-25 21:09 | PC.NURSE ---
This patient, Silvana Huff, was transferred to [ 320] on 04/25/22 at 2055. Personal belongings sent with patient. Report given to [Mirta NOLAN ]. Appropriate documentation sent with patient.
--- NOTE | 2022-04-25 21:10 | PC.NURSE ---
RN called and left message to patient's mother Lakshmi that patient to be moved to room 320. RN called patient's son Adrian and notified him over telephone that patient is now in room 320 and Adrian said he will also call his Grandmother.
--- NOTE | 2022-04-25 21:38 | PC.NURSE ---
This patient, Silvana Huff, was transferred from Intensive Care Unit-9 to [facility]surg 320. Patient/family oriented to hospital policies and general routines including ID bracelet, bed and alarms, visiting hours, pain management, procedures, bathroom and other care routines, personal items, smoking policy, room service/diet, and visiting hours. Comfort care only. Pt remains unresponsive. Information on how to activate the Rapid Response Team has been discussed. Patient/Family are encouraged to report perceived risks to care and to ask questions if they do not understand what they are told or what they should do. report received from [facility] ICU
[2022-04-25] MEDS: ATROPINE SULFATE 1% OPHTH SOLN 5 ML BOTTLE SUBLINGUAL (21:48)
[2022-04-26 08:00] VITALS: BP 91/58; PULSE 122; RESP 20; TEMP 36.3; O2SAT 94
[2022-04-26] MEDS: LORazepam INJ (*CRX) 2 MG/ML VIAL IV PUSH (10:08)
--- NOTE | 2022-04-26 11:16 | PM.IMPN ---
Progress Note: A&P Assessment and Plan (1) Acute respiratory failure: Code(s): J96.00 - Acute respiratory failure, unspecified whether with hypoxia or hypercapnia Status: Acute Assessment and Plan: patient is comfort measures (2) Aspiration pneumonia: Code(s): J69.0 - Pneumonitis due to inhalation of food and vomit Status: Acute Assessment and Plan: patient is comfort measures (3) Sinus tachycardia: Code(s): R00.0 - Tachycardia, unspecified Status: Acute Assessment and Plan: comfort measures (4) Pyelonephritis: Code(s): N12 - Tubulo-interstitial nephritis, not specified as acute or chronic Status: Acute Assessment and Plan: comfort measures (5) CVA (cerebral vascular accident): Code(s): I63.9 - Cerebral infarction, unspecified Status: Acute Assessment and Plan: comfort measures (6) Diabetes mellitus, new onset: Code(s): E11.9 - Type 2 diabetes mellitus without complications Status: Acute Assessment and Plan: comfort measures (7) Sepsis: Code(s): A41.9 - Sepsis, unspecified organism Status: Acute (8) Upper GI bleed: Code(s): K92.2 - Gastrointestinal hemorrhage, unspecified Status: Acute (9) Hyperthyroidism: Code(s): E05.90 - Thyrotoxicosis, unspecified without thyrotoxic crisis or storm Status: Acute (10) Electrolyte abnormality: Code(s): E87.8 - Other disorders of electrolyte and fluid balance, not elsewhere classified Status: Acute Subjective Date/time seen: 04/26/22 patient appears comfortable Objective Data Vital Signs Vital Signs: Vital Signs - 24 hr 04/25/22 20:00 04/25/22 20:00 04/25/22 21:34 Temperature Pulse Rate 104 H Respiratory Rate 12 Blood Pressure 102/62 Pulse Oximetry 96 96 Oxygen Delivery Room Air Room Air 04/25/22 22:31 04/26/22 08:00 Temperature 97.8 F 97.4 F L Pulse Rate 102 H 122 H Respiratory Rate 20 20 Blood Pressure 109/71 91/58 L Pulse Oximetry 92 94 Oxygen Delivery Intake/Output Intake/Output: Intake & Output 04/24/22 04/25/22 04/25/22 04/26/22 00:59 00:59 23:59 23:59 Intake Total 0 Output Total 250 Balance -250 Meds/Results Medications: Active Medications Generic Name Dose Route Start Last Admin Trade Name Freq PRN Reason Stop Dose Admin Atropine Sulfate 1 - 2 drop 04/25/22 11:47 04/25/22 21:48 Atropine Sulfate 1% Ophth Soln 5 Ml Bottle SUBLINGUAL 1 drop Q4H PRN Administration Secretions Lorazepam 2 mg 04/25/22 11:47 04/26/22 10:08 Lorazepam Inj (*Crx) 2 Mg/Ml Vial IV PUSH 2 mg Q2H PRN Administration Anxiety/Comfort Morphine Sulfate 2 mg 04/25/22 11:47 04/25/22 16:49 Morphine Sulfate (*Crx) 2 Mg/Ml Inj IV PUSH 2 mg Q30M PRN Administration COMFORT Scopolamine 1.5 mg 04/23/22 09:00 04/23/22 17:25 Scopolamine 1.5 Mg Patch TRANSDERM 1.5 mg Q72HR TREASURE Administration Radiology Results: ITS Impressions Abdomen/Pelvis CT 04/17/22 16:13 IMPRESSION: Renal findings may reflect bilateral pyelonephritis in the appropriate clinical context. ADDENDUM: 04/17/22 3776 The findings in the gallbladder section contains a dictation error, the gallbladder is not collapsed. There is cholelithiasis, without CT evidence of cholecystitis. Brain MRI 04/18/22 13:34 IMPRESSION: 1. Acute cortical infarcts in the frontoparietal regions, left worse than right. 2. Cortical infarcts involving the medial posterior frontal lobes, left worse than right, likely chronic. ADDENDUM: 04/21/22 1319 Comparison is made with subsequent head CTs. All of the infarcts are likely acute. The mildness of some of the infarcts decreases sensitivity and specificity of the ADC maps for infarct age determination. Neck/Chest CT 04/18/22 13:47 IMPRESSION: 1. No etiology for the patient's symptoms. Head/Neck CTA
--- NOTE | 2022-04-26 19:38 | PC.NURSE ---
This RN called into pt room approx 0945 by friend of pt who was sitting with her. According to friend, pt started shaking her head vigorously, eyes opened and fluttered but not focused. Assessed pt who appeared to be tachycardiac; HR>130. Tachypneic with rate above 32. Ativan given. Pt appeared much calmer within 20 minutes. Pt continued to be calm on hourly rounding. No more episodes like previously. Rounded approx 1250, pt family upset that we had not been in to see pt. Explained hourly rounding. Pt family voiced many concerns, including not doping pt up, turning and repositioning, wanting to know her last bowel movement. Family questions answered and this RN informed them that ativan given for possible anxiety. They stated you gave it because it made it easier for you to care for her . This RN reassured them I only treated pt for symptoms presented. Pt agonal breathing, secretions noted, and padilla in color at this time. Informed family pt was showing signs of declining stability. Called care coordination in to speak about possible hospice. Within approximately 30 minutes, pt passed. tank erector notified this RN pt had passed. At 1850, pt body released by cafe manager. PICC line and two PIVs removed, as well as brunson. Pt bathed and [place] [facility] [place] two allocations clerk.
--- NOTE | 2022-05-06 07:18 | P.DN_ITS ---
Discharge Summary Date and Time Date of : 04/26/22 Time of : 14:18 Provider Pronounced By: Payal Garcia Probable Cause of Probable Cause of : anoxic brain injury, CVA, amphetamine use Summary Hospital Course: patient is a 37-year-old female came in with neurologic complications from a CVA. She quickly deteriorated in The ER. Patient was admitted to the ICU and subsequent on ventilator for respiratory support. She had significant global neurologic sequelae. To note she was also positive for amphetamine use. Patient subsequently deteriorated was put on hospice care she had no meaningful neurologic improvement. Patient subsequently Additional Data Confirmation of as documented by pronouncing clinician: Pupillary Reflex, Palpable Pulses, Response to Stimuli, Heart Tones and Breath Sounds Name of Provider Notified: Dr. Hough Time Provider Notified: 15:50 Provider Requests Autopsy: No Family Requests Autopsy: No Software Licensing Specialist Notified: Yes Date [facility] Notified of : 04/26/22 Time [facility] Notified of : 15:32
== END 2022-04-26 14:18 | disposition expired | DRG 720 ==
LOC: ANHED 16:42 → ANH3MED 17:45 → ANHICU 04-18 21:08 → ANH3MEDSUR 04-25 22:12
PROVIDERS: Emergency Medicine; Internal Medicine; Internal Medicine Gastroenterology; Physician Assistant; Student in an Organized Health Care Education/Training Program; Admitting Provider Family Medicine; Emergency Provider Nurse Practitioner Family; Visit Provider Chiropractor
PROC: 0DJ08ZZ Inspection of Upper Intestinal Tract, Via Natural or Artificial Opening Endoscopic (ICD-10-PCS; CPT 43235; principal; 2022-04-20 13:15)
DX: A41.9 Sepsis, unspecified organism (principal); I63.9 Cerebral infarction, unspecified; J96.00 Acute respiratory failure, unspecified whether with hypoxia or hypercapnia; J69.0 Pneumonitis due to inhalation of food and vomit; G93.1 Anoxic brain damage, not elsewhere classified; J18.9 Pneumonia, unspecified organism; K22.11 Ulcer of esophagus with bleeding; E87.20 Acidosis, unspecified; K25.3 Acute gastric ulcer without hemorrhage or perforation; K29.60 Other gastritis without bleeding; K29.80 Duodenitis without bleeding; B37.0 Candidal stomatitis; E86.0 Dehydration; E87.8 Other disorders of electrolyte and fluid balance, not elsewhere classified; N12 Tubulo-interstitial nephritis, not specified as acute or chronic; E11.9 Type 2 diabetes mellitus without complications; R47.81 Slurred speech; R29.713 NIHSS score 13; E05.90 Thyrotoxicosis, unspecified without thyrotoxic crisis or storm; F19.10 Other psychoactive substance abuse, uncomplicated; R93.5 Abnormal findings on diagnostic imaging of other abdominal regions, including retroperitoneum; Z20.822 Contact with and (suspected) exposure to COVID-19; Z51.5 Encounter for palliative care; Z87.891 Personal history of nicotine dependence
CPT/HCPCS: 31500; 36415; 36569; 36600; 51701; 70450; 70490; 70496; 70498; 70553; 71045; 71250; 74176; 74177; 80048; 80053; 80202; 80307; 81001; 81025; 81240; 81241; 82010; 82375; 82550; 82595; 82607; 82805; 82948; 83036; 83050; 83090; 83605; 83735; 84100; 84145; 84439; 84443; 84480; 84481; 84484; 85014; 85018; 85025; 85027; 85300; 85303; 85306; 85380; 85610; 85613; 85652; 85730; 86140; 86147; 86160; 86162; 86225; 86235; 86430; 86592; 86703; 87040; 87070; 87081; 87086; 87205; 87502; 93005; 93306; 94002; 94003; 96361; 96365; 96366; 96367; 96372; 96374; 96375; 99285; A9270; A9577; C1751; C9113; G0378; G0379; G0432; J0696; J1450; J1650; J1815; J1953; J2060; J2270; J2543; J2704; J2765; J3370; J3475; J3480; J7030; J7040; J7120; Q9967; U0003; U0005